=== PATIENT | female | born 1960 ===

== ENCOUNTER 2018-10-03 14:02 | Inpatient (IN) | payer MEDICAID ==
[2018-10-03 14:54] VITALS: BMI 28.6
--- NOTE | 2018-10-03 18:38 | CP.PCM.HP ---
History of Present Illness - History of Present Illness History of Present Illness: 57 yo female with history of DM2, HTN and HLD was diagnosed with meningioma presenting with persistent headache accompanied with nausea and vomiting at [facility] on 08/01/2018. She was referred to [facility] and had debulking craniotomy on 09/29/2018. Present on Admission - Present on Admission Any Indicators Present on Admission: No History of DVT/PE: No History of Uncontrolled Diabetes: No Urinary Catheter: No Decubitus Ulcer Present: No Review of Systems - Review of Systems All systems: reviewed and no additional remarkable complaints except (aside from those mentioned above, 12 point system review were negative by me) Past Patient History - Tetanus Immunizations Tetanus Immunization: Unknown - Past Social History Smoking Status: Never Smoked Chewing Tobacco Use: No Cigar Use: No Alcohol: None Drugs: Denies Home Situation {Lives}: With Family - CARDIAC Hx Hypercholesterolemia: Yes Hx Hypertension: Yes - ENDOCRINE/METABOLIC Hx Diabetes Mellitus Type 2: Yes - MUSCULOSKELETAL/RHEUMATOLOGICAL Hx Falls: No - GASTROINTESTINAL Hx Gastritis: Yes - PSYCHIATRIC Hx Substance Use: No Meds Allergies/Adverse Reactions: Allergies Allergy/AdvReac Type Severity Reaction Status Date / Time No Known Allergies Allergy Verified 10/03/18 14:54 Physical Exam - Constitutional Appears: No Acute Distress - Head Exam Head Exam: absent: NORMAL INSPECTION (large surgical incision on right side of s calp closed with sutures, no sign of inflammation) - Eye Exam Eye Exam: absent: Normal appearance (right eyelid closed shut) - ENT Exam ENT Exam: Mucous Membranes Moist - Neck Exam Neck exam: Negative for: Meningismus - Respiratory Exam Respiratory Exam: absent: Rales, Rhonchi, Wheezes, Respiratory Distress - Cardiovascular Exam Cardiovascular Exam: REGULAR RHYTHM, +S1, +S2 - GI/Abdominal Exam GI & Abdominal Exam: Soft. absent: Tenderness - Rectal Exam Rectal Exam: Deferred - Neurological Exam Neurological exam: Alert, Oriented x3 - Psychiatric Exam Psychiatric exam: Normal Affect - Skin Skin Exam: Dry, Intact Assessment & Plan - Assessment and Plan (Free Text) Assessment: 57 yo female with history of DM2, HTN and HLD was diagnosed with meningioma presenting with persistent headache accompanied with nausea and vomiting at [facility] on 08/01/2018. She was referred to [facility] and had debulking craniotomy on 09/29/2018. She was brought here and admitted to Acute Rehab for continuation of PT. 1. Meningioma post debulking craniotomy day # 4 refer for PT evaluation and management physiatry consult with Dr Luis Sidhu 500mg PO BID 2. DM2 accuchek ACHS with low Lispro coverage Metformin 1000mg PO q 12hrs HgA1C, BMP in am 3. HTN BP stable continue Lisinopril 2.5mg PO daily 4. DVT prophylaxis venodyne boots while in bed
[2018-10-03] MEDS ORDERED: Albuterol-Ipratrop 3 mg / 0.5 (3 ml) UD IH PRN (18:49)
[2018-10-03] MEDS ORDERED: Oxycodone/Acetaminophen 5/325 mg Tab PO PRN (18:49)
[2018-10-03] MEDS ORDERED: LEVETIRACETAM 500 MG IVPB SCH (21:00)
[2018-10-03] MEDS: Insulin Lispro (humaLOG) 100 Units/ml Inj SC SCH (21:09)
[2018-10-04] MEDS ORDERED: Oxycodone/Acetaminophen 5/325 mg Tab PO PRN (04:14)
[2018-10-04] MEDS: Pantoprazole 40 mg EC Tab PO SCH (06:24)
[2018-10-04] MEDS: Insulin Lispro (humaLOG) 100 Units/ml Inj SC SCH ×4 (06:33→21:31)
[2018-10-04] MEDS: Multivitamin With Minerals Tab PO SCH (09:34)
[2018-10-04] MEDS: Cholecalciferol 400 Intl Units Tab PO SCH (11:29)
--- NOTE | 2018-10-04 12:11 | CP.PCM.CON ---
History of Present Illness - History of Present Illness History of Present Illness: Dr Smith PMR consultation on Crystal Rivera, born 1960, who has been admitted to [facility] for acute inpatient rehabilitation following an admission at [facility]. She had persistent HAs and was diagnosed with a meningioma and had undergone a debulking procedure 09/29/18. Post op minimal weakness in the extremities but a decrease in balance and functional gait. Right eye swelling and ptosis. She is right hand dominant Review of Systems - Constitutional Constitutional: absent: Chills - EENT Eyes: Other (right eye ptosis) Ears: absent: Ear Discharge, Ear Pain Nose/Mouth/Throat: absent: Nasal Discharge - Cardiovascular Cardiovascular: absent: Chest Pain - Respiratory Respiratory: absent: Cough, Dyspnea, Hemoptysis - Gastrointestinal Gastrointestinal: absent: Belching, Constipation - Musculoskeletal Musculoskeletal: absent: Back Pain - Integumentary Integumentary: absent: Skin Ulcer (rasta right frontal and lateral scalp) - Neurological Neurological: Other Visual Disturbances. absent: Abnormal Movements - Psychiatric Psychiatric: absent: Anxiety Past Patient History - Tetanus Immunizations Tetanus Immunization: Unknown - Past Social History Smoking Status: Never Smoked Chewing Tobacco Use: No Cigar Use: No Alcohol: None Drugs: Denies Home Situation {Lives}: With Family (some steps. Independent [employer]) - CARDIAC Hx Hypercholesterolemia: Yes Hx Hypertension: Yes - ENDOCRINE/METABOLIC Hx Diabetes Mellitus Type 2: Yes - HEMATOLOGICAL/ONCOLOGICAL Hx AIDS: No Hx Human Immunodeficiency Virus (HIV): No - MUSCULOSKELETAL/RHEUMATOLOGICAL Hx Falls: No - GASTROINTESTINAL Hx Gastritis: Yes - PSYCHIATRIC Hx Substance Use: No Meds Allergies/Adverse Reactions: Allergies Allergy/AdvReac Type Severity Reaction Status Date / Time No Known Allergies Allergy Verified 10/03/18 14:54 - Medications Medications: Current Medications Acetaminophen (Tylenol 325mg Tab) 650 mg PO Q4 PRN PRN Reason: Headache Last Admin: 10/03/18 19:19 Dose: 650 mg Acetaminophen (Tylenol 325mg Tab) 650 mg PO Q4 PRN PRN Reason: Other Last Admin: 10/04/18 06:22 Dose: 650 mg Albuterol/Ipratropium (Duoneb 3 Mg/0.5 Mg (3 Ml) Ud) 3 ml IH RQ4 PRN PRN Reason: Shortness of Breath Atorvastatin Calcium (Lipitor) 10 mg PO HS [facility] Last Admin: 10/03/18 21:11 Dose: 10 mg Dexamethasone (Decadron) 1 mg PO Q12 [facility] Last Admin: 10/04/18 11:29 Dose: 1 mg Dexamethasone (Decadron) 1 mg PO ONCE ONE Stop: 10/05/18 09:01 Diphenhydramine HCl (Benadryl) 25 mg PO Q6 PRN PRN Reason: itchiness Docusate Sodium (Colace) 100 mg PO BID [facility] Last Admin: 10/04/18 09:34 Dose: 100 mg Insulin Human Lispro (Humalog) 0 units SC [facility]; Protocol Last Admin: 10/04/18 11:29 Dose: 3 unit Levetiracetam (Keppra) 500 mg PO BID [facility] Last Admin: 10/04/18 09:34 Dose: 500 mg Lisinopril (Zestril) 2.5 mg PO DAILY [facility] Last Admin: 10/04/18 09:33 Dose: 2.5 mg Metformin HCl (Glucophage) 1,000 mg PO 0900,1700 [facility] Last Admin: 10/04/18 09:34 Dose: 1,000 mg Multivitamins/Minerals (Therapeutic-M Tab) 1 tab PO DAILY [facility] Last Admin: 10/04/18 09:34 Dose: 1 tab Oxycodone/Acetaminophen (Percocet 5/325 Mg Tab) 1 tab PO Q6 PRN PRN Reason: Pain, severe (8-10) Stop: 10/06/18 18:50 Pantoprazole Sodium (Protonix Ec Tab) 40 mg PO 0630 [facility] Last Admin: 10/04/18 06:24 Dose: 40 mg Vitamin D (Vitamin D 400 Intl Units Tab) 400 intlu PO DAILY [facility] Last Admin: 10/04/18 11:29 Dose: 400 intlu Physical Exam - Head Exam Head Exam: absent: ATRAUMATIC, NORMAL INSPECTION (rasta right frontal and lateral scalp) - Eye Exam Eye Exam: Periorbital swelling (right eye ptosis) - Respiratory Exam Respiratory Exam: NORMAL BREATHING PATTERN - Cardiovascular Exam Cardiovascular Exam: REGULAR RHYTHM - Extremities Exam Extremities exam: Negative for: calf tenderness - Neurological Exam Neurological exam: Alert, Oriented x3 - Psychiatric Exam Psychiatric exam: Normal Affect, Normal Mood - Skin Skin Exam: Warm Results - Vital Signs Recent Vital Signs: Last Vital Signs Temp 99.9 F H 10/04/18 09:58 Pulse 75 10/04/18 09:58 Resp 20 10/04/18 09:58 BP 155/76 H 10/04/18 09:58 Pulse Ox 95 10/04/18 09:58 - Labs Labs: Laboratory Results - last 24 hr 10/03/18 10/04/18 21:07 06:16 POC Glucose (mg/dL) 137 H 136 H Assessment & Plan - Assessment and Plan (Free Text) Assessment: Ariela Rivera s/p debulking procedure. Post op with right eye ptosis and ataxia PT/OT to continue to help increase functional independence Team conference for d/c planning Pain: controlled Vascular: no evidence of DVT GI: No evidence of constipation or diarrhea Patient is an excellent acute rehabilitation candidate and will have focused pain management, wound care, PT, OT and recreational therapy to help facilitate a safe and appropriate d/c plan
--- NOTE | 2018-10-04 12:16 | PCM.OPOC ---
Physiatry Overall Plan of Care - Overall Plan of Care Estimated Length of Stay in Weeks: 2 Rehab Impairment: Mobility, Gait, Balance, Coordination, Other (vision) Etiologic Diagnosis: Other (brain surgery) - Anticipated Interventions Physical Therapy:: Yes Occupational Therapy:: Yes Speech Therapy:: No Recreational Therapy:: Yes - Therapy Goals Bed Mobility: Independent Ambulation: Supervision Functional Positional Changes:: Independent - Discharge Plan Discharge Destination: Home
[2018-10-05] MEDS: Insulin Lispro (humaLOG) 100 Units/ml Inj SC SCH ×4 (06:30→21:00)
[2018-10-05] MEDS: Pantoprazole 40 mg EC Tab PO SCH (06:44)
[2018-10-05] MEDS: Cholecalciferol 400 Intl Units Tab PO SCH (09:18)
[2018-10-05] MEDS: Multivitamin With Minerals Tab PO SCH (09:18)
[2018-10-06] MEDS: Pantoprazole 40 mg EC Tab PO SCH (06:31)
[2018-10-06] MEDS: Insulin Lispro (humaLOG) 100 Units/ml Inj SC SCH ×4 (06:32→21:03)
[2018-10-06] MEDS: Multivitamin With Minerals Tab PO SCH (09:02)
[2018-10-06] MEDS: Cholecalciferol 400 Intl Units Tab PO SCH (09:03)
[2018-10-06] MEDS ORDERED: Oxycodone/Acetaminophen 5/325 mg Tab PO PRN (14:25)
--- NOTE | 2018-10-06 15:51 | CP.PCM.PN ---
Subjective - Date & Time of Evaluation Date of Evaluation: 10/06/18 Time of Evaluation: 14:30 - Subjective Subjective: Patient seen and examined. Right eyelid still swollen and closed. Complained of tingling sensation on left arm. Objective - Vital Signs/Intake and Output Vital Signs (last 24 hours): Temp Pulse Resp BP Pulse Ox 97.8 F 81 19 128/74 99 10/06/18 09:37 10/06/18 09:37 10/06/18 09:37 10/06/18 09:37 10/06/18 09:37 - Medications Medications: Current Medications Acetaminophen (Tylenol 325mg Tab) 650 mg PO Q4 PRN PRN Reason: Headache Last Admin: 10/06/18 09:03 Dose: 650 mg Acetaminophen (Tylenol 325mg Tab) 650 mg PO Q4 PRN PRN Reason: Other Last Admin: 10/05/18 14:41 Dose: 650 mg Albuterol/Ipratropium (Duoneb 3 Mg/0.5 Mg (3 Ml) Ud) 3 ml IH RQ4 PRN PRN Reason: Shortness of Breath Atorvastatin Calcium (Lipitor) 10 mg PO HS [facility] Last Admin: 10/05/18 21:00 Dose: 10 mg Diphenhydramine HCl (Benadryl) 25 mg PO Q6 PRN PRN Reason: itchiness Docusate Sodium (Colace) 100 mg PO BID [facility] Last Admin: 10/06/18 09:01 Dose: 100 mg Insulin Human Lispro (Humalog) 0 units SC [facility]; Protocol Last Admin: 10/06/18 12:47 Dose: 2 unit Levetiracetam (Keppra) 500 mg PO BID [facility] Last Admin: 10/06/18 09:02 Dose: 500 mg Lisinopril (Zestril) 2.5 mg PO DAILY [facility] Last Admin: 10/06/18 09:03 Dose: 2.5 mg Metformin HCl (Glucophage) 1,000 mg PO 0900,1700 [facility] Last Admin: 10/06/18 09:02 Dose: 1,000 mg Multivitamins/Minerals (Therapeutic-M Tab) 1 tab PO DAILY [facility] Last Admin: 10/06/18 09:02 Dose: 1 tab Oxycodone/Acetaminophen (Percocet 5/325 Mg Tab) 1 tab PO Q6 PRN PRN Reason: Pain, severe (8-10) Stop: 10/09/18 04:15 Pantoprazole Sodium (Protonix Ec Tab) 40 mg PO 0630 [facility] Last Admin: 10/06/18 06:31 Dose: 40 mg Vitamin D (Vitamin D 400 Intl Units Tab) 400 intlu PO DAILY [facility] Last Admin: 10/06/18 09:03 Dose: 400 intlu - Constitutional Appears: No Acute Distress - Head Exam Head Exam: absent: NORMAL INSPECTION (surgical wound on right parietal region closed with sutures, no sign of infection ) - Eye Exam Eye Exam: absent: Normal appearance (right eyelid still swollen and unable to open), Scleral icterus - ENT Exam ENT Exam: Mucous Membranes Moist - Neck Exam Neck Exam: absent: Meningismus - Respiratory Exam Respiratory Exam: absent: Rales, Rhonchi, Wheezes, Respiratory Distress - Cardiovascular Exam Cardiovascular Exam: REGULAR RHYTHM, +S1, +S2 - GI/Abdominal Exam GI & Abdominal Exam: Soft. absent: Tenderness - Rectal Exam Rectal Exam: Deferred - Back Exam Back Exam: NORMAL INSPECTION - Neurological Exam Neurological Exam: Alert, Oriented x3 - Psychiatric Exam Psychiatric exam: Normal Affect - Skin Skin Exam: Dry, Intact Assessment and Plan - Assessment and Plan (Free Text) Assessment: 57 yo female with history of DM2, HTN and HLD was diagnosed with meningioma presenting with persistent headache accompanied with nausea and vomiting at [facility] on 08/01/2018. She was referred to [facility] and had debulking craniotomy on 09/29/2018. She was brought here and admitted to Acute Rehab for continuation of PT. 1. Meningioma post debulking craniotomy day # 7 continue PT/OT physiatry consult with Dr Luis Sidhu 500mg PO BID 2. DM2 accuchek ACHS with low Lispro coverage Metformin 1000mg PO q 12hrs HgA1C, BMP in am 3. HTN BP stable continue Lisinopril 2.5mg PO daily 4. DVT prophylaxis venodyne boots while in bed
--- NOTE | 2018-10-06 17:19 | CP.PCM.PN ---
Subjective - Date & Time of Evaluation Date of Evaluation: 10/06/18 Time of Evaluation: 17:18 - Subjective Subjective: patient seen in the room right eye ptosis continues good UE/LE strength very motivated for PT when I lift up the lid there is no blurrieness continue current care Objective - Vital Signs/Intake and Output Vital Signs (last 24 hours): Temp Pulse Resp BP Pulse Ox 97.8 F 81 19 128/74 99 10/06/18 09:37 10/06/18 09:37 10/06/18 09:37 10/06/18 09:37 10/06/18 09:37 - Medications Medications: Current Medications Acetaminophen (Tylenol 325mg Tab) 650 mg PO Q4 PRN PRN Reason: Headache Last Admin: 10/06/18 09:03 Dose: 650 mg Acetaminophen (Tylenol 325mg Tab) 650 mg PO Q4 PRN PRN Reason: Other Last Admin: 10/05/18 14:41 Dose: 650 mg Albuterol/Ipratropium (Duoneb 3 Mg/0.5 Mg (3 Ml) Ud) 3 ml IH RQ4 PRN PRN Reason: Shortness of Breath Atorvastatin Calcium (Lipitor) 10 mg PO HS [facility] Last Admin: 10/05/18 21:00 Dose: 10 mg Diphenhydramine HCl (Benadryl) 25 mg PO Q6 PRN PRN Reason: itchiness Docusate Sodium (Colace) 100 mg PO BID [facility] Last Admin: 10/06/18 16:12 Dose: Not Given Insulin Human Lispro (Humalog) 0 units SC [facility]; Protocol Last Admin: 10/06/18 16:12 Dose: Not Given Levetiracetam (Keppra) 500 mg PO BID [facility] Last Admin: 10/06/18 09:02 Dose: 500 mg Lisinopril (Zestril) 2.5 mg PO DAILY [facility] Last Admin: 10/06/18 09:03 Dose: 2.5 mg Metformin HCl (Glucophage) 1,000 mg PO 0900,1700 [facility] Last Admin: 10/06/18 09:02 Dose: 1,000 mg Multivitamins/Minerals (Therapeutic-M Tab) 1 tab PO DAILY [facility] Last Admin: 10/06/18 09:02 Dose: 1 tab Oxycodone/Acetaminophen (Percocet 5/325 Mg Tab) 1 tab PO Q6 PRN PRN Reason: Pain, severe (8-10) Stop: 10/09/18 04:15 Pantoprazole Sodium (Protonix Ec Tab) 40 mg PO 629 [facility] Last Admin: 10/06/18 06:31 Dose: 40 mg Vitamin D (Vitamin D 400 Intl Units Tab) 400 intlu PO DAILY [facility] Last Admin: 10/06/18 09:03 Dose: 400 intlu
[2018-10-07] MEDS: Pantoprazole 40 mg EC Tab PO SCH (05:43)
[2018-10-07 06:29] LABS: HEMOGLOBIN 10.1 g/dL (12.0-16.0); MEAN CELL VOLUME 80.6 fl (81.0-99.0); MEAN CORPUSCULAR HGB CONC 32.3 g/dL (33.0-37.0); RBC 3.88 Mil/uL (3.80-5.20); RED CELL DISTRIBUTION WIDTH 15.8 % (11.5-14.5); WHITE BLOOD COUNT 12.9 K/uL (4.8-10.8)
[2018-10-07] MEDS: Insulin Lispro (humaLOG) 100 Units/ml Inj SC SCH ×4 (06:46→21:04)
[2018-10-07 06:52] LABS: BLOOD UREA NITROGEN 12 mg/dl (7-17); CALCIUM 9.5 mg/dL (8.4-10.2); GFR NON-AFRICAN AMERICAN > 60
[2018-10-07] MEDS: Multivitamin With Minerals Tab PO SCH (08:26)
[2018-10-07] MEDS: Cholecalciferol 400 Intl Units Tab PO SCH (08:27)
--- NOTE | 2018-10-07 13:17 | PCM.PSYTMC ---
Acute Rehab Team Conference - - Vital Signs: Vital Signs (Last 8 Hours): Vital Signs 10/07/18 10/07/18 08:14 08:23 Temperature 97.5 F L Pulse Rate 75 75 Respiratory 19 Rate Blood Pressure 130/72 130/72 O2 Sat by Pulse 97 Oximetry Pain: 0 - Precautions: Precautions: Fall Prevention, Seizure - Medications/Other Issues: Comment: Alert/forgetful and impulsive at times - Skin: Incision Site: Rt Forehead I/L with rasta AYANNA Dressing Status: Clean, Dry, Intact Incision: Well Approximated, [place] Intact Incision Line Treatment: AYANNA - Toileting: Toileting: Contact Guard - Bladder Management: Bladder Pattern: Normal Voiding Method: Toilet Bladder Management: Contact Guard Other Intervention:: Continent of urine no accidents - Transfers: Transfers: Contact Guard - ADL's: ADL's: Minimal Assistance - Pain Management: Other Intervention:: Assess prn - Patient/Family Teaching: Other Intervention:: Medication Management,Safety,Wound Care - Goals/Time Frame: Comment: as per POC - Provider: Registered Nurse:: Ludy Aviles Physical Therapy - Bed Mobility Bed Mobility: Supervision, Verbal Cues, Contact Guard Comment: bed mob CG/CS - Transfers Wheelchair to Mat: Verbal Cues, Contact Guard, Minimal Assistance Sit to Stand: Verbal Cues, Contact Guard Comment: vc for sequencing and safety w/ t/f, darin hand placement. Pt w/ intermittent impulsive episodes during t/f. Ant instability noted at times during t/f - Ambulation Level of Assistance: Verbal Cues, Contact Guard, Minimal Assistance Distance (ft.): 75 Comment: x2, multiple short distance walks. wide LORENZO w/ BLE ER, incr'd lateral sway, initial contact B foot flat. Pt is unsteady w/ multiple episodes of LOB fwd/bkwd, L/R, primarily to the R w/ min A to recover. Greater instability noted when navigating turns and obstacles - Stair Negotiation Stairs: Level of Assistance: Verbal Cues, Contact Guard Stairs: Assistive Devices: Left Handrail, Right Handrail Comment: 4-6 in (CG/min A) step to pattern. or 8-4 in (CG) step through pattern. slightly incr'd lateral sway noted w/ task - Standing Balance Static Stand: Contact Guard Assist Comment: unsupported - Pain Pain (assessed during therapy session): 0 Comment: N/A - Insight/Carryover Insight/Carryover: Fair - Patient/Family Education Comment: crani recovery topics, posture, activity pacing, seatbelt alarm, fxnl mob, safety, PT goals, POC, falls risk - Assessment/Plan Assessment: 57 yo female admitted to [facility] actue rehab s/p R debulking craniotomy due to cerebral meningoma. Pt present w/ lethargy, impulsivity, and impaired coordination, short term memory, balance, kinesthesia, fxnl mob, activity tolerance and safety. Skilled acute rehab PT recommended. - Goals Timeframe: 3 weeks Goals: Raphael Balance Scale 56/56. 2 flights 8 in steps w/ 1 HR mod I, step through pattern. 500' w/o AD indep. sit to stand t/f indep. SPT indep. bed mob indep - Provider Physical Therapist:: Jennifer Gardner License Number:: [id number] Occupational Therapy - Arousal/Attention/Orientation Level of Consciousness: Awake, Alert Patient Orientation: Person, Place, Time Assessment Comment: +impulsive - ADL/IADL Self Feeding: Set-up Help Grooming: Set-up Help Bathing-Upper Ext: Supervision Bathing-Lower Ext: Contact Guard Dressing-Upper Ext: Supervision Dressing-Lower Ext: Contact Guard - Sitting Balance Static Sitting: Independent without upper extremity support Dynamic Sitting: Requires supervision - Transfers Wheelchair to Bed Transfers: Contact Guard Toilet Transfers: Contact Guard Comment: uses RW - Wheelchair Management Level of Assistance: Supervision Distance (ft.): 150 - Upper Extremity Status Right Upper Extremity Comment: WFLs Left Upper Extremity Comment: WFLs - Pain Pain (assessed during therapy session): 4 Alleviating Techniques: Medication Comment: +headache - Insight/Carryover Insight/Carryover: Fair - Patient/Family Education Comment: AE/DME education, energy conservation, fall prevention, role of OT, goals in therapy/therapy schedule - Assessment/Plan Assessment: PRECAUTIONS:FALLS/SAFETY, SEATBELT ALARM IN PLACE AT ALL TIMES, VISION DEFECITS/R EYE CLOSURE. Patient is a 57 yo female presenting to acute rehab s/p R pterional craniotomy. patient presents with pain in head, R eyE swelling/closure,impaired safely awareness/impulsivity, unsteadiness on feet/impaired dyanamic standing balance and impaired knowledge of adaptive/compensatory techniques impacting pt's ability to complete adls, iadls, transfers and mobility safely and effectively. patient currently is able to complete ub adls with s/u/supervision, lb adls with overall cga and transfers/mopbility with cga w/o an AD, patient noted to have losses of balance during pivots. Educated pt importance of head turning to increase visually scanning environmet. skilled IP OT services 5-6x/week are highly warranted to maximize pt's functional I with aforementioned defecits. GOAL:D/C HOME WITH ITERMITTENT SUPERVISION PRN - Goals Timeframe: 2 weeks - Provider Occupational Therapist:: Mariaa Bone License Number: [id number] Recreational Therapy - Participation Participation: Participates in Individual and/or Group Sessions - Attendance Attendance: 3-5 times per week - Activities Leisure Activities: Cards and Games - Socialization Level of Socialization: Initiates/interacts freely with care givers and peer - Assessment Assessment/Plan: Pt was oriented to the benefits of participating in recreation therapy sessions throughout stay on unit. Pt agreeable to participate in sessions. Barriers to participation include visual deficits and pain. Pt will benefit from participating in recreation therapy sessions to improve command following, direction following, and arousal level. Problems Currently Limiting Participation: headache pain, R eye swollen, decrease leisure awareness level, decrease safety insight Goals and Time Frame: Pt will be encouraged to participate in 1:1 and group recreation therapy sessions 3-5x week to improve leisure awareness level, arousal level, command following level, and overall mood state by date of discharge. - Provider Therapist: Celi Gonzalez Nutrition - Current Diet Current Diet/Supplement/Feedings: Current: Moderate Consistent CHO diet. Prior: Regular Diet. - Appetite Percent Meal Consumed: 75-100% - Comments Comments: Pt seen today, diet changed to Consistent CHO diet. - Assessment/Goals/Time Frame Assessments/Goals/Time Frame: 1: Consume >75% of meals. 2: Blood sugars constrolled 70-180mg/dL. For follow up 10/14/18 - Provider Provider: Jarod Handy Case Management - Psychosocial Assessment Support Systems: Asia Pitts ([facility]) - [phone] Psychological Interventions/Needs: Patient is AAOx3 and able to verbalize needs. Discharge Concerns: Patient has 14+ steps to navigate at home and takes care of her elderly mother. Patient/Family Meeting: CM met with patient and rehab team. Intervention/Goal/Outcome: 1. Goal: Intermittent supervision 2. Plan: home with VNS 3. DME needs 4. f/u appts - Discharge Plan Discharge Plan: Home with services Home Services: [facility] - Provider Provider: Colleen Nye License Number: [id number] Rehabilitation Plan - Treatment Plan Treatment Plan: Physical Therapy, Occupational Therapy, Dietary, Patient/Family Education - Discharge Plan Estimated Date of Discharge: 10/15/18 Discharge to: Home
--- NOTE | 2018-10-07 13:45 | CP.PCM.PN ---
Subjective - Date & Time of Evaluation Date of Evaluation: 10/07/18 Time of Evaluation: 13:44 - Subjective Subjective: Patient seen in the room some mild decrease in periorbital swelling on the right denies sob/cp now stable and motivated rasta cdi and have been cleared to remove 10/13/18 Objective - Vital Signs/Intake and Output Vital Signs (last 24 hours): Temp Pulse Resp BP Pulse Ox 97.5 F L 75 19 130/72 97 10/07/18 08:14 10/07/18 08:23 10/07/18 08:14 10/07/18 08:23 10/07/18 08:14 - Medications Medications: Current Medications Acetaminophen (Tylenol 325mg Tab) 650 mg PO Q4 PRN PRN Reason: Headache Last Admin: 10/07/18 08:28 Dose: 650 mg Acetaminophen (Tylenol 325mg Tab) 650 mg PO Q4 PRN PRN Reason: Other Last Admin: 10/05/18 14:41 Dose: 650 mg Albuterol/Ipratropium (Duoneb 3 Mg/0.5 Mg (3 Ml) Ud) 3 ml IH RQ4 PRN PRN Reason: Shortness of Breath Atorvastatin Calcium (Lipitor) 10 mg PO HS [facility] Last Admin: 10/06/18 21:04 Dose: 10 mg Diphenhydramine HCl (Benadryl) 25 mg PO Q6 PRN PRN Reason: itchiness Docusate Sodium (Colace) 100 mg PO BID [facility] Last Admin: 10/07/18 08:24 Dose: 100 mg Insulin Human Lispro (Humalog) 0 units SC [facility]; Protocol Last Admin: 10/07/18 12:20 Dose: Not Given Levetiracetam (Keppra) 500 mg PO BID [facility] Last Admin: 10/07/18 08:26 Dose: 500 mg Lisinopril (Zestril) 2.5 mg PO DAILY [facility] Last Admin: 10/07/18 08:23 Dose: 2.5 mg Metformin HCl (Glucophage) 1,000 mg PO 0900,1700 [facility] Last Admin: 10/07/18 08:23 Dose: 1,000 mg Multivitamins/Minerals (Therapeutic-M Tab) 1 tab PO DAILY [facility] Last Admin: 10/07/18 08:26 Dose: 1 tab Oxycodone/Acetaminophen (Percocet 5/325 Mg Tab) 1 tab PO Q6 PRN PRN Reason: Pain, severe (8-10) Stop: 10/09/18 04:15 Pantoprazole Sodium (Protonix Ec Tab) 40 mg PO 0630 [facility] Last Admin: 10/07/18 05:43 Dose: 40 mg Vitamin D (Vitamin D 400 Intl Units Tab) 400 intlu PO DAILY [facility] Last Admin: 10/07/18 08:27 Dose: 400 intlu - Labs Labs: 10/07/18 05:20 10/07/18 05:20
[2018-10-08] MEDS: Pantoprazole 40 mg EC Tab PO SCH (06:06)
[2018-10-08] MEDS: Insulin Lispro (humaLOG) 100 Units/ml Inj SC SCH ×4 (07:00→21:54)
[2018-10-08] MEDS: Cholecalciferol 400 Intl Units Tab PO SCH (08:44)
[2018-10-08] MEDS: Multivitamin With Minerals Tab PO SCH (08:45)
--- NOTE | 2018-10-08 11:26 | CP.PCM.PN ---
Subjective - Date & Time of Evaluation Date of Evaluation: 10/08/18 Time of Evaluation: 11:26 - Subjective Subjective: doing well no complaints hd stable nad Objective - Vital Signs/Intake and Output Vital Signs (last 24 hours): Temp Pulse Resp BP Pulse Ox 97.9 F 80 20 109/66 98 10/08/18 09:24 10/08/18 09:49 10/08/18 09:24 10/08/18 09:24 10/08/18 09:24 Vitals Reviewed GEN: WDWN, alert, cooperative HEENT: NCAT, PERRL, EOMI HEART: RRR, +S1S2, NO MRG LUNG: CTAB, NO WRR ABD: soft, NT, ND, No HSM, No masses EXT: normal pedal pulses NEURO: awake, alert SKIN: warm, dry PSYCH: normal mood, normal affect - Medications Medications: Current Medications Acetaminophen (Tylenol 325mg Tab) 650 mg PO Q4 PRN PRN Reason: Headache Last Admin: 10/07/18 08:28 Dose: 650 mg Acetaminophen (Tylenol 325mg Tab) 650 mg PO Q4 PRN PRN Reason: Other Last Admin: 10/08/18 08:49 Dose: 650 mg Albuterol/Ipratropium (Duoneb 3 Mg/0.5 Mg (3 Ml) Ud) 3 ml IH RQ4 PRN PRN Reason: Shortness of Breath Atorvastatin Calcium (Lipitor) 10 mg PO [facility] Last Admin: 10/07/18 21:05 Dose: 10 mg Diphenhydramine HCl (Benadryl) 25 mg PO Q6 PRN PRN Reason: itchiness Docusate Sodium (Colace) 100 mg PO BID [facility] Last Admin: 10/08/18 08:45 Dose: 100 mg Insulin Human Lispro (Humalog) 0 units SC [facility]; Protocol Last Admin: 10/08/18 07:00 Dose: Not Given Levetiracetam (Keppra) 500 mg PO BID [facility] Last Admin: 10/08/18 08:45 Dose: 500 mg Lisinopril (Zestril) 2.5 mg PO DAILY [facility] Last Admin: 10/08/18 08:45 Dose: 2.5 mg Metformin HCl (Glucophage) 1,000 mg PO 0900,1700 [facility] Last Admin: 10/08/18 08:45 Dose: 1,000 mg Multivitamins/Minerals (Therapeutic-M Tab) 1 tab PO DAILY [facility] Last Admin: 10/08/18 08:45 Dose: 1 tab Oxycodone/Acetaminophen (Percocet 5/325 Mg Tab) 1 tab PO Q6 PRN PRN Reason: Pain, severe (8-10) Stop: 10/09/18 04:15 Pantoprazole Sodium (Protonix Ec Tab) 40 mg PO 0630 [facility] Last Admin: 10/08/18 06:06 Dose: 40 mg Vitamin D (Vitamin D 400 Intl Units Tab) 400 intlu PO DAILY [facility] Last Admin: 10/08/18 08:44 Dose: 400 intlu - Labs Labs: 10/07/18 05:20 10/07/18 05:20 Assessment and Plan - Assessment and Plan (Free Text) Plan: 57 yo female with history of DM2, HTN and HLD was diagnosed with meningioma presenting with persistent headache accompanied with nausea and vomiting at [facility] on 08/01/2018. She was referred to [facility] and had debulking craniotomy on 09/29/2018. She was brought here and admitted to Acute Rehab for continuation of PT. 1. Meningioma post debulking craniotomy day # 7 continue PT/OT physiatry consult with Dr Luis Sidhu 500mg PO BID 2. DM2 accuchek ACHS with low Lispro coverage Metformin 1000mg PO q 12hrs HgA1C, BMP in am 3. HTN BP stable continue Lisinopril 2.5mg PO daily 4. DVT prophylaxis venodyne boots while in bed
--- NOTE | 2018-10-08 13:40 | CP.PCM.PN ---
Subjective - Date & Time of Evaluation Date of Evaluation: 10/08/18 Time of Evaluation: 13:38 - Subjective Subjective: Crystal Rivera, born 1960, who has been admitted to [facility] for acute inpatient rehabilitation following an admission at [facility]. She had persistent HAs and was diagnosed with a meningioma and had undergone a debulking procedure 09/29/18. Post op minimal weakness in the extremities but a decrease in balance and functional gait. Right eye swelling and ptosis. She is right hand dominant Objective - Vital Signs/Intake and Output Vital Signs (last 24 hours): Temp Pulse Resp BP Pulse Ox 97.9 F 80 20 109/66 98 10/08/18 09:24 10/08/18 09:49 10/08/18 09:24 10/08/18 09:24 10/08/18 09:24 - Medications Medications: Current Medications Acetaminophen (Tylenol 325mg Tab) 650 mg PO Q4 PRN PRN Reason: Headache Last Admin: 10/07/18 08:28 Dose: 650 mg Acetaminophen (Tylenol 325mg Tab) 650 mg PO Q4 PRN PRN Reason: Other Last Admin: 10/08/18 08:49 Dose: 650 mg Albuterol/Ipratropium (Duoneb 3 Mg/0.5 Mg (3 Ml) Ud) 3 ml IH RQ4 PRN PRN Reason: Shortness of Breath Atorvastatin Calcium (Lipitor) 10 mg PO HS [facility] Last Admin: 10/07/18 21:05 Dose: 10 mg Diphenhydramine HCl (Benadryl) 25 mg PO Q6 PRN PRN Reason: itchiness Docusate Sodium (Colace) 100 mg PO BID [facility] Last Admin: 10/08/18 08:45 Dose: 100 mg Insulin Human Lispro (Humalog) 0 units SC [facility]; Protocol Last Admin: 10/08/18 12:28 Dose: Not Given Levetiracetam (Keppra) 500 mg PO BID [facility] Last Admin: 10/08/18 08:45 Dose: 500 mg Lisinopril (Zestril) 2.5 mg PO DAILY [facility] Last Admin: 10/08/18 08:45 Dose: 2.5 mg Metformin HCl (Glucophage) 1,000 mg PO 0900,1700 [facility] Last Admin: 10/08/18 08:45 Dose: 1,000 mg Multivitamins/Minerals (Therapeutic-M Tab) 1 tab PO DAILY [facility] Last Admin: 10/08/18 08:45 Dose: 1 tab Oxycodone/Acetaminophen (Percocet 5/325 Mg Tab) 1 tab PO Q6 PRN PRN Reason: Pain, severe (8-10) Stop: 10/09/18 04:15 Pantoprazole Sodium (Protonix Ec Tab) 40 mg PO 0630 [facility] Last Admin: 10/08/18 06:06 Dose: 40 mg Vitamin D (Vitamin D 400 Intl Units Tab) 400 intlu PO DAILY [facility] Last Admin: 10/08/18 08:44 Dose: 400 intlu - Labs Labs: 10/07/18 05:20 10/07/18 05:20 - Constitutional Appears: Non-toxic, No Acute Distress - Head Exam Head Exam: absent: ATRAUMATIC (right sided rasta CDI) - Eye Exam Eye Exam: absent: EOMI (right eye lacking medial gaze. + Ptosis right) - Respiratory Exam Respiratory Exam: NORMAL BREATHING PATTERN - Cardiovascular Exam Cardiovascular Exam: REGULAR RHYTHM - GI/Abdominal Exam GI & Abdominal Exam: absent: Distended, Guarding - Extremities Exam Extremities Exam: Full ROM. absent: Calf Tenderness - Neurological Exam Neurological Exam: Alert. absent: CN II-XII Intact (right III and IV ) - Psychiatric Exam Psychiatric exam: Normal Affect, Normal Mood - Skin Skin Exam: Warm Assessment and Plan - Assessment and Plan (Free Text) Assessment: Crystal Rivera, born 1960, who has been admitted to [facility] for acute inpatient rehabilitation following an admission at [facility]. She had persistent HAs and was diagnosed with a meningioma and had undergone a debulking procedure 09/29/18. Post op minimal weakness in the extremities but a decrease in balance and functional gait. Right eye swelling and ptosis. She is right hand dominant stable with no improvement in right eye PT/OT to continue to help increase functional independence Team conference for d/c planning Pain: controlled Vascular: no evidence of DVT GI: No evidence of constipation or diarrhea Patient continues to be an excellent acute rehabilitation candidate and will have continued focused PT, OT and recreational therapy to help facilitate a safe and appropriate d/c plan
[2018-10-09] MEDS ORDERED: Hydrogen Peroxide 237 ML SOL TP SCH ×2 (06:30→07:00)
[2018-10-09] MEDS: Pantoprazole 40 mg EC Tab PO SCH (06:33)
[2018-10-09] MEDS: Insulin Lispro (humaLOG) 100 Units/ml Inj SC SCH ×4 (06:41→21:09)
[2018-10-09] MEDS: Hydrogen Peroxide 3% Soln (480ml) TP SCH (07:45)
[2018-10-09] MEDS: Multivitamin With Minerals Tab PO SCH (08:25)
[2018-10-09] MEDS: Cholecalciferol 400 Intl Units Tab PO SCH (08:25)
[2018-10-09] MEDS ORDERED: Oxycodone/Acetaminophen 5/325 mg Tab PO PRN (10:18)
[2018-10-10] MEDS: Pantoprazole 40 mg EC Tab PO SCH (05:54)
[2018-10-10] MEDS: Hydrogen Peroxide 3% Soln (480ml) TP SCH (05:59)
[2018-10-10] MEDS: Insulin Lispro (humaLOG) 100 Units/ml Inj SC SCH ×4 (07:36→21:23)
[2018-10-10] MEDS: Multivitamin With Minerals Tab PO SCH (09:02)
[2018-10-10] MEDS: Cholecalciferol 400 Intl Units Tab PO SCH (09:03)
--- NOTE | 2018-10-10 14:42 | CP.PCM.PN ---
Subjective - Date & Time of Evaluation Date of Evaluation: 10/10/18 Time of Evaluation: 10:30 - Subjective Subjective: Patient seen and examined. Complained of discomfort on right eye that is still closed in spite of reduced swelling on the eyelids. Objective - Vital Signs/Intake and Output Vital Signs (last 24 hours): Temp Pulse Resp BP Pulse Ox 98 F 77 18 111/80 99 10/10/18 10:38 10/10/18 09:24 10/10/18 07:30 10/10/18 09:02 10/10/18 07:30 - Medications Medications: Current Medications Acetaminophen (Tylenol 325mg Tab) 650 mg PO Q4 PRN PRN Reason: Headache Last Admin: 10/10/18 10:38 Dose: 650 mg Acetaminophen (Tylenol 325mg Tab) 650 mg PO Q4 PRN PRN Reason: Other Last Admin: 10/09/18 20:11 Dose: 650 mg Albuterol/Ipratropium (Duoneb 3 Mg/0.5 Mg (3 Ml) Ud) 3 ml IH RQ4 PRN PRN Reason: Shortness of Breath Atorvastatin Calcium (Lipitor) 10 mg PO HS [facility] Last Admin: 10/09/18 21:06 Dose: 10 mg Diphenhydramine HCl (Benadryl) 25 mg PO Q6 PRN PRN Reason: itchiness Docusate Sodium (Colace) 100 mg PO BID [facility] Last Admin: 10/10/18 09:01 Dose: 100 mg Hydrogen Peroxide (Hydrogen Peroxide 3%) 10 ml TP DAILY@0700 [facility] Last Admin: 10/10/18 05:59 Dose: 10 ml Insulin Human Lispro (Humalog) 0 units SC [facility]; Protocol Last Admin: 10/10/18 07:36 Dose: 1 unit Levetiracetam (Keppra) 500 mg PO BID [facility] Last Admin: 10/10/18 09:01 Dose: 500 mg Lisinopril (Zestril) 2.5 mg PO DAILY [facility] Last Admin: 10/10/18 09:02 Dose: 2.5 mg Metformin HCl (Glucophage) 1,000 mg PO 0900,1700 [facility] Last Admin: 10/10/18 09:03 Dose: 1,000 mg Multivitamins/Minerals (Therapeutic-M Tab) 1 tab PO DAILY [facility] Last Admin: 10/10/18 09:02 Dose: 1 tab Oxycodone/Acetaminophen (Percocet 5/325 Mg Tab) 1 tab PO Q6 PRN PRN Reason: Pain, severe (8-10) Stop: 10/12/18 10:19 Pantoprazole Sodium (Protonix Ec Tab) 40 mg PO 0630 [facility] Last Admin: 10/10/18 05:54 Dose: 40 mg Vitamin D (Vitamin D 400 Intl Units Tab) 400 intlu PO DAILY [facility] Last Admin: 10/10/18 09:03 Dose: 400 intlu - Labs Labs: 10/07/18 05:20 10/07/18 05:20 - Constitutional Appears: No Acute Distress - Head Exam Head Exam: absent: NORMAL INSPECTION (suture intact on surgical wound on right side of head, no sign of infection) - Eye Exam Eye Exam: absent: Scleral icterus - ENT Exam ENT Exam: Mucous Membranes Moist - Neck Exam Neck Exam: absent: Meningismus - Respiratory Exam Respiratory Exam: absent: Rales, Rhonchi, Wheezes, Respiratory Distress - Cardiovascular Exam Cardiovascular Exam: REGULAR RHYTHM, +S1, +S2 - GI/Abdominal Exam GI & Abdominal Exam: Soft. absent: Tenderness - Rectal Exam Rectal Exam: Deferred - Neurological Exam Neurological Exam: Alert, Oriented x3 - Psychiatric Exam Psychiatric exam: Normal Affect - Skin Skin Exam: Dry, Intact Assessment and Plan - Assessment and Plan (Free Text) Assessment: [facility] on 08/01/2018. She was referred to [facility] and had debulking craniotomy on 09/29/2018. She was brought here and admitted to Acute Rehab for continuation of PT. 1. Meningioma post debulking craniotomy continue PT/OT physiatry consult with Dr Luis Sidhu 500mg PO BID neuro consult with Dr Jimenez 2. DM2 accuchek ACHS with low Lispro coverage Metformin 1000mg PO q 12hrs HgA1C, BMP in am 3. HTN BP stable continue Lisinopril 2.5mg PO daily 4. DVT prophylaxis venodyne boots while in bed
--- NOTE | 2018-10-10 16:30 | CP.PCM.PN ---
Subjective - Date & Time of Evaluation Date of Evaluation: 10/10/18 Time of Evaluation: 16:29 - Subjective Subjective: Patient seen in the PT gym doing BINGO she still has severe ptosis of the right eye very energetic though today and denies any pain or sob continue current care I will d/c rasta next week. Objective - Vital Signs/Intake and Output Vital Signs (last 24 hours): Temp Pulse Resp BP Pulse Ox 98 F 77 18 111/80 99 10/10/18 10:38 10/10/18 09:24 10/10/18 07:30 10/10/18 09:02 10/10/18 07:30 - Medications Medications: Current Medications Acetaminophen (Tylenol 325mg Tab) 650 mg PO Q4 PRN PRN Reason: Headache Last Admin: 10/10/18 10:38 Dose: 650 mg Acetaminophen (Tylenol 325mg Tab) 650 mg PO Q4 PRN PRN Reason: Other Last Admin: 10/09/18 20:11 Dose: 650 mg Albuterol/Ipratropium (Duoneb 3 Mg/0.5 Mg (3 Ml) Ud) 3 ml IH RQ4 PRN PRN Reason: Shortness of Breath Artificial Tears (Artificial Tears) 2 drop OD Q6 [facility] Atorvastatin Calcium (Lipitor) 10 mg PO HS [facility] Last Admin: 10/09/18 21:06 Dose: 10 mg Diphenhydramine HCl (Benadryl) 25 mg PO Q6 PRN PRN Reason: itchiness Docusate Sodium (Colace) 100 mg PO BID [facility] Last Admin: 10/10/18 09:01 Dose: 100 mg Hydrogen Peroxide (Hydrogen Peroxide 3%) 10 ml TP DAILY@0700 [facility] Last Admin: 10/10/18 05:59 Dose: 10 ml Insulin Human Lispro (Humalog) 0 units SC [facility]; Protocol Last Admin: 10/10/18 07:36 Dose: 1 unit Levetiracetam (Keppra) 500 mg PO BID [facility] Last Admin: 10/10/18 09:01 Dose: 500 mg Lisinopril (Zestril) 2.5 mg PO DAILY [facility] Last Admin: 10/10/18 09:02 Dose: 2.5 mg Metformin HCl (Glucophage) 1,000 mg PO 0900,1700 [facility] Last Admin: 10/10/18 09:03 Dose: 1,000 mg Multivitamins/Minerals (Therapeutic-M Tab) 1 tab PO DAILY [facility] Last Admin: 10/10/18 09:02 Dose: 1 tab Oxycodone/Acetaminophen (Percocet 5/325 Mg Tab) 1 tab PO Q6 PRN PRN Reason: Pain, severe (8-10) Stop: 10/12/18 10:19 Pantoprazole Sodium (Protonix Ec Tab) 40 mg PO 0630 [facility] Last Admin: 10/10/18 05:54 Dose: 40 mg Vitamin D (Vitamin D 400 Intl Units Tab) 400 intlu PO DAILY [facility] Last Admin: 10/10/18 09:03 Dose: 400 intlu - Labs Labs: 10/07/18 05:20 10/07/18 05:20
[2018-10-10] MEDS: Artificial Tears Opht Soln OD SCH ×2 (18:04→23:47)
[2018-10-11] MEDS: Artificial Tears Opht Soln OD SCH ×3 (05:53→17:38)
[2018-10-11] MEDS: Pantoprazole 40 mg EC Tab PO SCH (05:53)
[2018-10-11] MEDS: Hydrogen Peroxide 3% Soln (480ml) TP SCH (06:12)
[2018-10-11] MEDS: Insulin Lispro (humaLOG) 100 Units/ml Inj SC SCH ×4 (07:23→21:17)
[2018-10-11 07:28] LABS: HEMOGLOBIN 10.8 g/dL (12.0-16.0); MEAN CELL VOLUME 80.7 fl (81.0-99.0); MEAN CORPUSCULAR HGB CONC 32.2 g/dL (33.0-37.0); RBC 4.15 Mil/uL (3.80-5.20); RED CELL DISTRIBUTION WIDTH 16.2 % (11.5-14.5)
[2018-10-11 07:49] LABS: BLOOD UREA NITROGEN 14 mg/dl (7-17); CALCIUM 9.4 mg/dL (8.4-10.2); GFR NON-AFRICAN AMERICAN > 60
[2018-10-11] MEDS: Multivitamin With Minerals Tab PO SCH (08:58)
[2018-10-11] MEDS: Cholecalciferol 400 Intl Units Tab PO SCH (08:59)
--- NOTE | 2018-10-11 23:57 | CP.PCM.CON ---
History of Present Illness - History of Present Illness History of Present Illness: Neurology consult dictated. Patient with meningioma resected at [facility]. now has C3, 6, and 4 palsy on right side that may be secondary to edema, but we will need MRI Brain to confirm. For now we will repeat CT head. DR baidr Past Patient History - Tetanus Immunizations Tetanus Immunization: Unknown - Past Social History Smoking Status: Never Smoked Chewing Tobacco Use: No Cigar Use: No Alcohol: None Drugs: Denies Home Situation {Lives}: With Family (some steps. Independent [employer]) - CARDIAC Hx Hypertension: Yes - ENDOCRINE/METABOLIC Hx Diabetes Mellitus Type 2: Yes - HEMATOLOGICAL/ONCOLOGICAL Hx AIDS: No Hx Human Immunodeficiency Virus (HIV): No - MUSCULOSKELETAL/RHEUMATOLOGICAL Hx Falls: No - GASTROINTESTINAL Hx Gastritis: Yes - PSYCHIATRIC Hx Substance Use: No Meds Allergies/Adverse Reactions: Allergies Allergy/AdvReac Type Severity Reaction Status Date / Time No Known Allergies Allergy Verified 10/03/18 14:54 - Medications Medications: Current Medications Acetaminophen (Tylenol 325mg Tab) 650 mg PO Q4 PRN PRN Reason: Headache Last Admin: 10/11/18 22:56 Dose: 650 mg Acetaminophen (Tylenol 325mg Tab) 650 mg PO Q4 PRN PRN Reason: Other Last Admin: 10/10/18 23:51 Dose: 650 mg Albuterol/Ipratropium (Duoneb 3 Mg/0.5 Mg (3 Ml) Ud) 3 ml IH RQ4 PRN PRN Reason: Shortness of Breath Artificial Tears (Artificial Tears) 2 drop OD Q6 [facility] Last Admin: 10/11/18 17:38 Dose: 2 applic Atorvastatin Calcium (Lipitor) 10 mg PO HS [facility] Last Admin: 10/11/18 21:18 Dose: 10 mg Diphenhydramine HCl (Benadryl) 25 mg PO Q6 PRN PRN Reason: itchiness Docusate Sodium (Colace) 100 mg PO BID [facility] Last Admin: 10/11/18 17:38 Dose: 100 mg Hydrogen Peroxide (Hydrogen Peroxide 3%) 10 ml TP DAILY@0700 [facility] Last Admin: 10/11/18 06:12 Dose: 10 ml Insulin Human Lispro (Humalog) 0 units SC [facility]; Protocol Last Admin: 10/11/18 21:17 Dose: Not Given Levetiracetam (Keppra) 500 mg PO BID [facility] Last Admin: 10/11/18 17:39 Dose: 500 mg Lisinopril (Zestril) 2.5 mg PO DAILY [facility] Last Admin: 10/11/18 08:58 Dose: 2.5 mg Metformin HCl (Glucophage) 1,000 mg PO 0900,1700 [facility] Last Admin: 10/11/18 17:39 Dose: 1,000 mg Multivitamins/Minerals (Therapeutic-M Tab) 1 tab PO DAILY [facility] Last Admin: 10/11/18 08:58 Dose: 1 tab Oxycodone/Acetaminophen (Percocet 5/325 Mg Tab) 1 tab PO Q6 PRN PRN Reason: Pain, severe (8-10) Stop: 10/12/18 10:19 Pantoprazole Sodium (Protonix Ec Tab) 40 mg PO 0630 [facility] Last Admin: 10/11/18 05:53 Dose: 40 mg Vitamin D (Vitamin D 400 Intl Units Tab) 400 intlu PO DAILY [facility] Last Admin: 10/11/18 08:59 Dose: 400 intlu Results - Vital Signs Recent Vital Signs: Last Vital Signs Temp 97.7 F 10/11/18 20:00 Pulse 83 10/11/18 20:00 Resp 20 10/11/18 20:00 BP 121/62 10/11/18 20:00 Pulse Ox 100 10/11/18 20:00 - Labs Result Diagrams: 10/11/18 05:30 10/11/18 05:30 Labs: Laboratory Results - last 24 hr 10/11/18 10/11/18 10/11/18 05:30 05:30 05:53 WBC 11.0 H RBC 4.15 Hgb 10.8 L Hct 33.5 L MCV 80.7 L MCH 26.0 L MCHC 32.2 L RDW 16.2 H Plt Count 494 H Sodium 136 Potassium 4.0 Chloride 94 L Carbon Dioxide 29 Anion Gap 17 BUN 14 Creatinine 0.5 L Est GFR ( Amer) > 60 Est GFR (Non-Af Amer) > 60 POC Glucose (mg/dL) 178 H Random Glucose 179 H Calcium 9.4 10/11/18 10/11/18 11:29 15:56 WBC RBC Hgb Hct MCV MCH MCHC RDW Plt Count Sodium Potassium Chloride Carbon Dioxide Anion Gap BUN Creatinine Est GFR ( Amer) Est GFR (Non-Af Amer) POC Glucose (mg/dL) 171 H 139 H Random Glucose Calcium
--- NOTE | 2018-10-12 | CON ---
DATE: 10/11/2018 NEUROLOGY CONSULTATION Neurology consult Called by Dr. Hossein Jamison. HISTORY OF PRESENT ILLNESS: Ms. Crystal Rivera is a 57-year-old woman, who presented initially to [facility] on 08/04/2018. She presented with severe headache, 9/10, persistent for several days with nausea and vomiting and photophobia. She also stated that she had numbness of her right side of her tongue for one day. Upon imaging, the patient was found to have a large skull base tumor, thought to be meningioma and was referred for neurosurgical evaluation. Subsequently, while in [facility], the patient had said tumor resected, did well in the postop period, was started on Keppra. Pathology showed that the right-sided skull base tumor was indeed a meningioma. Cristian were placed in the right frontoparietal region and the patient was transferred last week to [facility]. Upon admission to the hospital, it was noted that the patient had right eye complete ptosis and right cranial nerve third and sixth paralysis. The patient states that these extraocular movement abnormalities were present immediately after the meningioma resection; however, we do not have notes to corroborate this claim. REVIEW OF SYSTEMS: Headache, malaise, ocular pain. A 12-point review of systems were found to positive only for the aforementioned. PAST MEDICAL HISTORY: As follows: Diabetes type 2, hypertension, hyperlipidemia. PAST SURGICAL HISTORY: As above. FAMILY HISTORY: Noncontributory. SOCIAL HISTORY: Noncontributory. ALLERGIES: NO KNOWN DRUG ALLERGIES. PHYSICAL EXAMINATION: GENERAL: The patient is alert and oriented x3. NEUROLOGIC: Pupils are equal, round, and reactive to light. Extraocular movements; left side extraocular movements are normal and right side, there is paralysis of cranial nerves IV, III, and . There is also right-sided ptosis, that is cranial nerve III involvement. Visual marrero are compromised on the right side. Visual marrero are full on the left side. The patient has complete anopsia on the right side. Mini-mental status is 30/30. Speech is fluent. She can name and repeat. Motor is 5/5 upper and lower bilaterally. Sensory in intact to fine touch, pin, position and vibration sense. Gait is not tested. Reflexes are +2 to upper and lower bilaterally. There is no facial weakness; however, there is swelling on the right side of the face. Cristian were examined and look clear and clean of infection and properly placed. LABORATORY DATA: As follows: White count 11, hemoglobin 10, hematocrit 32.5, platelets 494. Chemistry: Sodium 136, potassium 4, chloride 94, carbon dioxide 29. GFR is over 60. Glucose is 171. CAT scan of the head was done on 08/01/2018. This is preop. We do not have a postop film available at this point. IMPRESSION: This is a 57-year-old woman status post resection of skull base right-sided meningioma involving the frontal restorationism region. I am quite concerned about cranial nerves III, IV, and and paralysis of eye movements on her right side. I will further investigate to see if these are chronic changes; however, in the meantime, we will need to get a repeat CT head immediately. She will also need MRI of the brain. At this point, it does not appear that the eye is infected and it does not appear if there is an aneurysmal process; however, we will consider getting CT of the head and neck as well. Thank you for this interesting consult. Our team will follow. Tia Jimenez MD JERRICA
[2018-10-12] MEDS: Artificial Tears Opht Soln OD SCH ×4 (05:39→17:13)
[2018-10-12] MEDS: Pantoprazole 40 mg EC Tab PO SCH (05:39)
[2018-10-12] MEDS: Hydrogen Peroxide 3% Soln (480ml) TP SCH (07:37)
[2018-10-12] MEDS: Insulin Lispro (humaLOG) 100 Units/ml Inj SC SCH ×4 (07:37→21:07)
[2018-10-12] MEDS: Multivitamin With Minerals Tab PO SCH (08:34)
[2018-10-12] MEDS: Cholecalciferol 400 Intl Units Tab PO SCH (08:35)
--- NOTE | 2018-10-12 15:54 | CT ---
Date of service: 10/12/2018 PROCEDURE: CT HEAD WITHOUT CONTRAST. HISTORY: persistent ptosis of right eye post craniotomy COMPARISON: CT head dated 08/01/2018 performed at [facility]. TECHNIQUE: Axial computed tomography images were obtained through the head/brain without intravenous contrast. Radiation dose: Total exam DLP = 838.98 mGy-cm. This CT exam was performed using one or more of the following dose reduction techniques: Automated exposure control, adjustment of the mA and/or kV according to patient size, and/or use of iterative reconstruction technique. FINDINGS: HEMORRHAGE: No intracranial hemorrhage. BRAIN: Postsurgical changes in the right frontotemporal region with a small amount of supple malacia is seen in the inferior right temporal lobe. Stable appearance of large soft tissue mass which involves the inferomedial temporal lobe, clivus, right sphenoid wing, right petrous apex, probably extends into the sphenoid sinus and cavernous sinus and exerts mass effect on the midbrain/ramin displacing it to the left. VENTRICLES: Effacement of the right suprasellar cistern. Mass effect on the right portion of the 4th ventricle. No hydrocephalus. CALVARIUM: Right frontotemporal craniotomy. Postsurgical changes in the scalp with air and fluid. PARANASAL SINUSES: Subtotal opacification of the sphenoid sinuses, possibly from tumoral extension. MASTOID AIR CELLS: Unremarkable as visualized. No inflammatory changes. OTHER FINDINGS: Dysconjugate gaze. IMPRESSION: Interval right frontotemporal craniotomy with associated postsurgical changes. No significant change in appearance comment distribution for extent of above described mass with persistent mass effect upon with displacement of the midbrain/ramin to the left.
[2018-10-13] MEDS: Artificial Tears Opht Soln OD SCH ×5 (00:37→23:46)
[2018-10-13] MEDS: Pantoprazole 40 mg EC Tab PO SCH (05:55)
[2018-10-13] MEDS: Hydrogen Peroxide 3% Soln (480ml) TP SCH (06:19)
[2018-10-13] MEDS: Insulin Lispro (humaLOG) 100 Units/ml Inj SC SCH ×4 (08:00→21:55)
[2018-10-13] MEDS: Cholecalciferol 400 Intl Units Tab PO SCH (08:12)
[2018-10-13] MEDS: Multivitamin With Minerals Tab PO SCH (08:13)
--- NOTE | 2018-10-13 11:29 | CP.PCM.PN ---
Subjective - Date & Time of Evaluation Date of Evaluation: 10/13/18 Time of Evaluation: 11:00 - Subjective Subjective: Pt doing well with PT plan for removal of Craniotomy rasta today feels strong accdg to PT sl balance problems but otherwise ambulates on her own without the aide of any assistive device she is lookimg forward to going home and be with family denies any pain no CP, no SOB, no abd pain Objective - Vital Signs/Intake and Output Vital Signs (last 24 hours): Temp Pulse Resp BP Pulse Ox 97.9 F 85 18 108/60 98 10/13/18 07:43 10/13/18 08:12 10/13/18 07:43 10/13/18 08:12 10/13/18 07:43 - Medications Medications: Current Medications Acetaminophen (Tylenol 325mg Tab) 650 mg PO Q4 PRN PRN Reason: Headache Last Admin: 10/12/18 13:50 Dose: 650 mg Acetaminophen (Tylenol 325mg Tab) 650 mg PO Q4 PRN PRN Reason: Other Last Admin: 10/10/18 23:51 Dose: 650 mg Albuterol/Ipratropium (Duoneb 3 Mg/0.5 Mg (3 Ml) Ud) 3 ml IH RQ4 PRN PRN Reason: Shortness of Breath Artificial Tears (Artificial Tears) 2 drop OD Q6 [facility] Last Admin: 10/13/18 05:55 Dose: 1 applic Atorvastatin Calcium (Lipitor) 10 mg PO HS [facility] Last Admin: 10/12/18 21:13 Dose: 10 mg Diphenhydramine HCl (Benadryl) 25 mg PO Q6 PRN PRN Reason: itchiness Docusate Sodium (Colace) 100 mg PO BID [facility] Last Admin: 10/13/18 08:13 Dose: 100 mg Hydrogen Peroxide (Hydrogen Peroxide 3%) 10 ml TP DAILY@0700 [facility] Last Admin: 10/13/18 06:19 Dose: 10 ml Insulin Human Lispro (Humalog) 0 units SC [facility]; Protocol Last Admin: 10/13/18 08:00 Dose: 1 unit Levetiracetam (Keppra) 500 mg PO BID [facility] Last Admin: 10/13/18 08:12 Dose: 500 mg Lisinopril (Zestril) 2.5 mg PO DAILY [facility] Last Admin: 10/13/18 08:12 Dose: 2.5 mg Metformin HCl (Glucophage) 1,000 mg PO 0900,1700 [facility] Last Admin: 10/13/18 08:13 Dose: 1,000 mg Multivitamins/Minerals (Therapeutic-M Tab) 1 tab PO DAILY [facility] Last Admin: 10/13/18 08:13 Dose: 1 tab Pantoprazole Sodium (Protonix Ec Tab) 40 mg PO 0630 [facility] Last Admin: 10/13/18 05:55 Dose: 40 mg Vitamin D (Vitamin D 400 Intl Units Tab) 400 intlu PO DAILY [facility] Last Admin: 10/13/18 08:12 Dose: 400 intlu - Labs Labs: 10/11/18 05:30 10/11/18 05:30 - Constitutional Appears: No Acute Distress - Head Exam Additional comments: right craniotomy with rasta - Eye Exam Additional comments: right lid paralysis right pupils nonreactive and dilated - ENT Exam ENT Exam: Mucous Membranes Moist, Normal External Ear Exam - Neck Exam Neck Exam: Full ROM. absent: Meningismus - Respiratory Exam Respiratory Exam: NORMAL BREATHING PATTERN. absent: Respiratory Distress - Cardiovascular Exam Cardiovascular Exam: REGULAR RHYTHM, +S1, +S2 - GI/Abdominal Exam GI & Abdominal Exam: Soft, Normal Bowel Sounds. absent: Tenderness - Extremities Exam Extremities Exam: Full ROM, Normal Capillary Refill. absent: Calf Tenderness - Back Exam Back Exam: Full ROM. absent: CVA tenderness (L), CVA tenderness (R) - Neurological Exam Neurological Exam: Alert, Awake, Oriented x3 Neuro motor strength exam: Left Upper Extremity: 5, Right Upper Extremity: 5, Left Lower Extremity: 5, Right Lower Extremity: 5 - Psychiatric Exam Psychiatric exam: Normal Affect, Normal Mood - Skin Skin Exam: Dry, Normal Color, Warm Assessment and Plan - Assessment and Plan (Free Text) Plan: 57 y/o lady with Meniningioma dx in [facility] on 08/01/2018. She was referred to [facility] and had debulking craniotomy on 09/29/2018. She was brought here and admitted to Acute Rehab for continuation of PT. 1. Meningioma s/p Craniotomy with debulking continue PT/OT physiatry consult with Dr Luis Sidhu 500mg PO BID neuro consult with Dr Jimenez rpt Ct opf head done 10/12:Interval right frontotemporal craniotomy with associated postsurgical changes. No significant change in appearance comment distribution for extent of above described mass with persistent mass effect upon with displacement of the midbrain/ramin to the left. 2. DM2 accuchek ACHS with low Lispro coverage Metformin 1000mg PO q 12hrs 3. HTN BP stable continue Lisinopril 2.5mg PO daily 4. DVT prophylaxis venodyne boots while in bed
--- NOTE | 2018-10-13 11:52 | CP.PCM.PN ---
Subjective - Date & Time of Evaluation Date of Evaluation: 10/13/18 Time of Evaluation: 11:52 - Subjective Subjective: Neuro Follow-Up Note: Mrs. Rivera was evaluated this afternoon in the acute rehab. Pt admits to feeling frustrated with not being able to open her eye. She states that this started right after her craniotomy on 09/29/18. She is also worried because she has follow up appts with her neurosurgeon and is not sure if she can be transported from rehab to the office; she states that she has spoken to social insurance administrator about this concern. Otherwise, she is going well and denies h/a, dizziness, visual changes to the left eye, chest pain, palpitations, sob, cough, abd pain, n/v/d, paresthesias. Objective - Vital Signs/Intake and Output Vital Signs (last 24 hours): Temp Pulse Resp BP Pulse Ox 97.9 F 85 18 108/60 98 10/13/18 07:43 10/13/18 08:12 10/13/18 07:43 10/13/18 08:12 10/13/18 07:43 - Medications Medications: Current Medications Acetaminophen (Tylenol 325mg Tab) 650 mg PO Q4 PRN PRN Reason: Headache Last Admin: 10/12/18 13:50 Dose: 650 mg Acetaminophen (Tylenol 325mg Tab) 650 mg PO Q4 PRN PRN Reason: Other Last Admin: 10/10/18 23:51 Dose: 650 mg Albuterol/Ipratropium (Duoneb 3 Mg/0.5 Mg (3 Ml) Ud) 3 ml IH RQ4 PRN PRN Reason: Shortness of Breath Artificial Tears (Artificial Tears) 2 drop OD Q6 [facility] Last Admin: 10/13/18 05:55 Dose: 1 applic Atorvastatin Calcium (Lipitor) 10 mg PO HS [facility] Last Admin: 10/12/18 21:13 Dose: 10 mg Diphenhydramine HCl (Benadryl) 25 mg PO Q6 PRN PRN Reason: itchiness Docusate Sodium (Colace) 100 mg PO BID [facility] Last Admin: 10/13/18 08:13 Dose: 100 mg Hydrogen Peroxide (Hydrogen Peroxide 3%) 10 ml TP DAILY@0700 [facility] Last Admin: 10/13/18 06:19 Dose: 10 ml Insulin Human Lispro (Humalog) 0 units SC ACHS [facility]; Protocol Last Admin: 10/13/18 08:00 Dose: 1 unit Levetiracetam (Keppra) 500 mg PO BID [facility] Last Admin: 10/13/18 08:12 Dose: 500 mg Lisinopril (Zestril) 2.5 mg PO DAILY [facility] Last Admin: 10/13/18 08:12 Dose: 2.5 mg Metformin HCl (Glucophage) 1,000 mg PO 0900,1700 [facility] Last Admin: 10/13/18 08:13 Dose: 1,000 mg Multivitamins/Minerals (Therapeutic-M Tab) 1 tab PO DAILY [facility] Last Admin: 10/13/18 08:13 Dose: 1 tab Pantoprazole Sodium (Protonix Ec Tab) 40 mg PO 0630 [facility] Last Admin: 10/13/18 05:55 Dose: 40 mg Vitamin D (Vitamin D 400 Intl Units Tab) 400 intlu PO DAILY [facility] Last Admin: 10/13/18 08:12 Dose: 400 intlu - Labs Labs: 10/11/18 05:30 10/11/18 05:30 - Constitutional Appears: Well, Non-toxic, No Acute Distress - Head Exam Head Exam: NORMOCEPHALIC Additional comments: Post-craniotomy surgical site with rasta noted to right frontal area - Eye Exam Eye Exam: absent: Normal appearance, PERRL Pupil Exam: absent: NORMAL ACCOMODATION Additional comments: + right side ptosis noted + slight swelling noted to right periorbital area With examiner holding the right eye open: + EMOI intact, visual marrero intact, no nystagmus, pupil size 5mm and is reactive but slightly sluggish. No deficits to left eye movements or visual marrero. - ENT Exam ENT Exam: Mucous Membranes Moist - Neck Exam Neck Exam: Full ROM, Normal Inspection - Respiratory Exam Respiratory Exam: NORMAL BREATHING PATTERN - Extremities Exam Extremities Exam: Full ROM. absent: Calf Tenderness, Pedal Edema - Back Exam Back Exam: Full ROM - Neurological Exam Neurological Exam: Alert, Awake, Oriented x3, Reflexes Normal. absent: CN II- XII Intact Neuro motor strength exam: Left Upper Extremity: 5, Right Upper Extremity: 5, Left Lower Extremity: 5, Right Lower Extremity: 5 Additional comments: AAOx3 Follows commands Speech clear, fluid No motor and sensory deficits. + right sided ptosis---see eyes exam section for more details. Sensation intact - Psychiatric Exam Psychiatric exam: Normal Affect, Normal Mood - Skin Skin Exam: Normal Color Additional comments: Post-craniotomy surgical site with rasta noted to right frontal area Assessment and Plan (1) Ptosis of right eyelid Assessment & Plan: Imaging reviewed: -CT Head (10/12/18): Interval right frontotemporal craniotomy with associated postsurgical changes. No significant change in appearance comment distribution for extent of above described mass with persistent mass effect upon with displacement of the midbrain/ramin to the left. -Start Decadron 10mg IV Q8 hours--will adjust dose tomorrow. -Neuro checks q4 hours and prn. -Repeat non-contrast CT Head tomorrow morning to re-eval the mass effect with displaced midbrain/ramin. -Continue Keppra 500mg PO BID for seizure ppx. -Notify neuro team of any acute changes in pt's condition. May consider transfer to med-surg/tele floor if there is an acute change in pt's condition or if neuro checks cannot be done q4 hours. Discussed with Dr. Masterson Status: Acute
[2018-10-13] MEDS ORDERED: Dexamethasone 10 MG in Sodium Chloride 0.9% 50 ML IV SCH (14:00)
--- NOTE | 2018-10-13 16:43 | CP.PCM.PN ---
Subjective - Date & Time of Evaluation Date of Evaluation: 10/13/18 Time of Evaluation: 16:42 - Subjective Subjective: Patient seen in the room still significant scabbing over incision I have instructed nursing to rub gauze over the area a few times to night and soak it as well to prep the area for an easier removal of the rasta Objective - Vital Signs/Intake and Output Vital Signs (last 24 hours): Temp Pulse Resp BP Pulse Ox 97.9 F 82 18 113/66 98 10/13/18 07:43 10/13/18 16:00 10/13/18 16:00 10/13/18 16:00 10/13/18 07:43 - Medications Medications: Current Medications Acetaminophen (Tylenol 325mg Tab) 650 mg PO Q4 PRN PRN Reason: Headache Last Admin: 10/12/18 13:50 Dose: 650 mg Acetaminophen (Tylenol 325mg Tab) 650 mg PO Q4 PRN PRN Reason: Other Last Admin: 10/13/18 15:58 Dose: 650 mg Albuterol/Ipratropium (Duoneb 3 Mg/0.5 Mg (3 Ml) Ud) 3 ml IH RQ4 PRN PRN Reason: Shortness of Breath Artificial Tears (Artificial Tears) 2 drop OD Q6 [facility] Last Admin: 10/13/18 11:40 Dose: 1 applic Atorvastatin Calcium (Lipitor) 10 mg PO HS [facility] Last Admin: 10/12/18 21:13 Dose: 10 mg Dexamethasone (Decadron Inj) 10 mg IV Q8 [facility] Last Admin: 10/13/18 14:21 Dose: 10 mg Diphenhydramine HCl (Benadryl) 25 mg PO Q6 PRN PRN Reason: itchiness Docusate Sodium (Colace) 100 mg PO BID [facility] Last Admin: 10/13/18 08:13 Dose: 100 mg Hydrogen Peroxide (Hydrogen Peroxide 3%) 10 ml TP DAILY@0700 [facility] Last Admin: 10/13/18 06:19 Dose: 10 ml Insulin Human Lispro (Humalog) 0 units SC [facility]; Protocol Last Admin: 10/13/18 12:41 Dose: 1 unit Levetiracetam (Keppra) 500 mg PO BID [facility] Last Admin: 10/13/18 08:12 Dose: 500 mg Lisinopril (Zestril) 2.5 mg PO DAILY [facility] Last Admin: 10/13/18 08:12 Dose: 2.5 mg Metformin HCl (Glucophage) 1,000 mg PO 0900,1700 [facility] Last Admin: 10/13/18 16:39 Dose: 1,000 mg Multivitamins/Minerals (Therapeutic-M Tab) 1 tab PO DAILY [facility] Last Admin: 10/13/18 08:13 Dose: 1 tab Pantoprazole Sodium (Protonix Ec Tab) 40 mg PO 0630 [facility] Last Admin: 10/13/18 05:55 Dose: 40 mg Vitamin D (Vitamin D 400 Intl Units Tab) 400 intlu PO DAILY [facility] Last Admin: 10/13/18 08:12 Dose: 400 intlu - Labs Labs: 10/11/18 05:30 10/11/18 05:30
[2018-10-14] MEDS: Artificial Tears Opht Soln OD SCH ×4 (06:19→23:00)
[2018-10-14] MEDS: Pantoprazole 40 mg EC Tab PO SCH (06:20)
[2018-10-14] MEDS: Hydrogen Peroxide 3% Soln (480ml) TP SCH (06:43)
[2018-10-14] MEDS: Insulin Lispro (humaLOG) 100 Units/ml Inj SC SCH ×4 (06:54→21:17)
[2018-10-14] MEDS: Multivitamin With Minerals Tab PO SCH (09:27)
[2018-10-14] MEDS: Cholecalciferol 400 Intl Units Tab PO SCH (09:28)
--- NOTE | 2018-10-14 11:52 | CT ---
Date of service: 10/14/2018 PROCEDURE: CT HEAD WITHOUT CONTRAST. HISTORY: re-eval mass effect with displaced midbrain/ramin COMPARISON: None available. TECHNIQUE: Axial computed tomography images were obtained through the head/brain without intravenous contrast. Radiation dose: Total exam DLP = 0.0 mGy-cm. This CT exam was performed using one or more of the following dose reduction techniques: Automated exposure control, adjustment of the mA and/or kV according to patient size, and/or use of iterative reconstruction technique. FINDINGS: HEMORRHAGE: No intracranial hemorrhage. BRAIN: A large hyperdense masses appreciated at the central/right paracentral inferior intracranial space centered at the skull base and right middle and posterior cranial fossae as well as suprasellar cistern, right greater than left cerebellopontine angles as well as the right basilar cistern and pre medullary cistern. Erosive changes affect the right sphenoid, including the clivus and temporal bones once again with patient seen to be status post right frontotemporal craniotomy/partial craniectomy. Invasion into the sphenoid sinuses reiterated. Local encephalomalacia is again seen affecting the right temporal with mass effect at the right cerebral peduncle and brainstem reiterated. Minimal shift toward the left of the brainstem question. Compression of the right side of the ramin and medulla a significantly more prominent feature than leftward shift. No significant interval change appreciated. Overall size the mass is again seen measuring 5.7 x 5.5 cm (transverse by anteroposterior dimensions). Stable right frontotemporal scalp fluid collection and emphysema. MASTOID AIR CELLS: Unremarkable as visualized. No inflammatory changes. OTHER FINDINGS: None. IMPRESSION: Stable large right skull base mass not simply changed in size with significant mass effect persisting at the right cerebral peduncle and brainstem status post prior right frontotemporal craniotomy. Compression of the ramin and upper medulla and predominate at the right side, not significantly changed. Stable right frontotemporal scalp fluid collection and emphysema.
--- NOTE | 2018-10-14 13:23 | PCM.PSYTMC ---
Acute Rehab Team Conference - - Vital Signs: Vital Signs (Last 8 Hours): Vital Signs 10/14/18 10/14/18 10/14/18 07:54 08:03 09:28 Temperature 97.6 F 97.6 F Pulse Rate 94 H 94 H 94 H Respiratory 19 19 Rate Blood Pressure 115/66 115/66 115/72 O2 Sat by Pulse 99 Oximetry Pain: 0 - Precautions: Precautions: Fall Prevention, Seizure - Medications/Other Issues: Comment: -Unable to open right eye. Pupil is reactive but sluggish. -Madison on incision line. -Keppra for seizure prevention - Consults: Comment: -Dr. Smith - Physiatry. -Dr. Jimenez - Neurology - Skin: Incision Site: Right frontal region Dressing Status: Clean, Dry, Intact Incision: Madison Intact Incision Line Treatment: I/L w/ scab and rasta. Using NS to soften the scabs for staple removal. - Toileting: Toileting: Supervision - Bladder Management: Bladder Pattern: Normal Voiding Method: Toilet Bladder Management: Independent Other Intervention:: Continent of urine no accidents - Transfers: Transfers: Contact Guard - ADL's: ADL's: Minimal Assistance - Pain Management: Other Intervention:: -Tylenol 650 mg every 4 hours for pain 1-7. -Percocet 1 tab every 6 hours for pain 8-10. - Patient/Family Teaching: Other Intervention:: -Teach patient safety precautions, medication (seizure medication, diabetic medication, and blood pressure meds), wound care, hand- washing - Goals/Time Frame: Comment: To keep patient safe and infection-free until discharge date or next team conference - Provider: Registered Nurse:: Gabriella Sosa Physical Therapy - Bed Mobility Bed Mobility: Supervision - Transfers Wheelchair to Mat: Supervision Sit to Stand: Supervision, Verbal Cues - Ambulation Level of Assistance: Supervision, Verbal Cues Distance (ft.): 300 Assistive Devices: N/A - Stair Negotiation Stairs: Level of Assistance: Supervision, Verbal Cues Number of Stairs: 22 Handrails: Left - Standing Balance Static Stand: Independent Comment: unsupported - Pain Pain (assessed during therapy session): 0 Alleviating Techniques: Medication Comment: occasional headaches - Insight/Carryover Insight/Carryover: Good - Patient/Family Education Comment: safety, POC, d/c recommendations - Assessment/Plan Assessment: Pt participated in PT tx session focusing in BLE strengthening exercises, balance and endurance activities, and functional mobiltiy training. Pts daughter was scheduled for caregiver training; however, did not come. interior surface insulation worker made aware. Pt ambulates without AD and distant S; negotiates 2 flights of stairs with distant supervision. Pt will continue to benefit from skilled PT interventions to address deficits, reduce fall risk, and maximize functional independence - Goals Timeframe: 1 week Goals: sit < > supine (I). All functional transfers (I). Pt will ambulate 1000 ft (I). Pt will ascend/descend flight of stairs mod I - Provider Physical Therapist:: Eve Garvey License Number:: [id number] Occupational Therapy - Arousal/Attention/Orientation Level of Consciousness: Awake, Alert Patient Orientation: Person, Place, Time, Appropriate to Age, Appropriate to Situation - ADL/IADL Self Feeding: Set-up Help Grooming: Set-up Help Bathing-Upper Ext: Independent, Verbal Cues, Set-up Help Bathing-Lower Ext: Supervision, Verbal Cues, Set-up Help Dressing-Upper Ext: Independent, Set-up Help Dressing-Lower Ext: Supervision, Verbal Cues, Set-up Help Comment: DS for lower body self care - Sitting Balance Static Sitting: Independent without upper extremity support Dynamic Sitting: Reaches across midline, Reaches out of base of support, Reaches within base of support, Requires supervision - Transfers Wheelchair to Bed Transfers: Supervision, Verbal Cues, Set-up Help Toilet Transfers: Supervision, Verbal Cues, Set-up Help Tub Transfers: Supervision, Verbal Cues, Set-up Help - Wheelchair Management Level of Assistance: Not Applicable - Upper Extremity Status Right Upper Extremity Comment: AROM is WFLS, 4/5 Left Upper Extremity Comment: AROM is WFLS, 4/5 - Pain Pain (assessed during therapy session): 0 - Insight/Carryover Insight/Carryover: Good - Patient/Family Education Comment: -educated on rehba/OT goals, paln of care. -adl/transfer mobility traing using sfaety strategies, pacing. -review uses/applications of commode, shower chair with back - Assessment/Plan Assessment: Pt currently Supervision level for adls, transfers/functional mobility Pt does not need 3 in one commode at this time--thus removed from over toilet. Pt reminded if changes mind about needing commode to let therapist made aware. Pt needs verbal cues for pacing darin with turns/maneuvers. Goal: Intermittent S for adls, transfers/mobility and light homemaking tasks. - Goals Timeframe: 3 days Comment: *Distant S for self care, transfers/mobility and light kitchen tasks. *Caregiver to be I assisting/cueing pt for daily living atsks - Provider Occupational Therapist:: Haylie Colón License Number: [id number] Recreational Therapy - Participation Participation: Participates in Individual and/or Group Sessions - Attendance Attendance: 3-5 times per week - Activities Leisure Activities: Cards and Games - Socialization Level of Socialization: Initiates/interacts freely with care givers and peer - Assessment Assessment/Plan: Pt is agreeable to participate in 1:1 and group recreation therapy sessions offered on unit. Pt enjoyed participating in bingo task with peers and presented with visual attention related tasks such as coloring, word searches, etc. to complete during her free time. Pt receives supervision throughout all sessions 2' impaired balance although pt does well and compensates for visual deficits. Pt will continue to benefit from participating in recreation therapy sessions offered on unit. Problems Currently Limiting Participation: headache pain, R eye swollen, decrease leisure awareness level, decrease safety insight Goals and Time Frame: Pt will be encouraged to participate in 1:1 and group recreation therapy sessions 3-5x week to improve leisure awareness level, arousal level, command following level, and overall mood state by date of discharge. - Provider Therapist: Celi Gonzalez Nutrition - Current Diet Current Diet/Supplement/Feedings: Moderate consistent CHO - Appetite Percent Meal Consumed: 75-100% - Comments Comments: Pt seen today, diet changed to Consistent CHO diet. - Assessment/Goals/Time Frame Assessments/Goals/Time Frame: Pt at moderate nutritional risk. goals: 1) Pt to consume at least 75% meals without GI upset x 5-7 days. 2) Pt to have glucose controlled 80-180mg/dL x 5-7 days. Follow-up due on 10/14/2018 - Provider Provider: aJna Godinez Case Management - Psychosocial Assessment Support Systems: Asia Pitts ([place]) - [phone] Psychological Interventions/Needs: Patient is AAOx3 and able to verbalize needs. Discharge Concerns: Patient lives at home with her elderly mother whom she takes care of, as well as her daughter and granddaughter. Patient has a flight of stairs to navigate. Patient/Family Meeting: CM met with patient and rehab team. Intervention/Goal/Outcome: 1. Goal: Intermittent supervision 2. Plan: Home with [facility]NS 3. follow up with [facility] agencies to solidify which agency can provide pt services through her [employer] insurance 4. confirm brain picker upon d/c by pt's friend, Asia - Discharge Plan Discharge Plan: Home with services Home Services: [facility]? - Provider Provider: Colleen Nye License Number: [id number] Rehabilitation Plan - Treatment Plan Treatment Plan: Physical Therapy, Occupational Therapy, Dietary - Discharge Plan Estimated Date of Discharge: 10/15/18 Discharge to: Home
--- NOTE | 2018-10-14 14:05 | CP.PCM.PN ---
Subjective - Date & Time of Evaluation Date of Evaluation: 10/14/18 Time of Evaluation: 14:02 - Subjective Subjective: Patient seen in the room doing very well ambulating 300' rasta due out today I had the area prepped yesterday to remove any excess scabbing which was done nicely by nursing staff I removed all rasta with minimal discomfort. No need even for steristrips. Set for d/c home tomorrow Objective - Vital Signs/Intake and Output Vital Signs (last 24 hours): Temp Pulse Resp BP Pulse Ox 97.6 F 94 H 19 115/72 99 10/14/18 08:03 10/14/18 09:28 10/14/18 08:03 10/14/18 09:28 10/14/18 08:03 - Medications Medications: Current Medications Acetaminophen (Tylenol 325mg Tab) 650 mg PO Q4 PRN PRN Reason: Headache Last Admin: 10/12/18 13:50 Dose: 650 mg Acetaminophen (Tylenol 325mg Tab) 650 mg PO Q4 PRN PRN Reason: Other Last Admin: 10/13/18 23:52 Dose: 650 mg Albuterol/Ipratropium (Duoneb 3 Mg/0.5 Mg (3 Ml) Ud) 3 ml IH RQ4 PRN PRN Reason: Shortness of Breath Artificial Tears (Artificial Tears) 2 drop OD Q6 [facility] Last Admin: 10/14/18 11:56 Dose: 2 drop Atorvastatin Calcium (Lipitor) 10 mg PO HS [facility] Last Admin: 10/13/18 21:42 Dose: 10 mg Dexamethasone (Decadron Inj) 10 mg IV Q8 [facility] Last Admin: 10/14/18 13:18 Dose: 10 mg Diphenhydramine HCl (Benadryl) 25 mg PO Q6 PRN PRN Reason: itchiness Docusate Sodium (Colace) 100 mg PO BID [facility] Last Admin: 10/14/18 09:27 Dose: 100 mg Hydrogen Peroxide (Hydrogen Peroxide 3%) 10 ml TP DAILY@0700 [facility] Last Admin: 10/14/18 06:43 Dose: 10 ml Insulin Human Lispro (Humalog) 0 units SC [facility]; Protocol Last Admin: 10/14/18 11:56 Dose: 2 unit Levetiracetam (Keppra) 500 mg PO BID [facility] Last Admin: 10/14/18 09:27 Dose: 500 mg Lisinopril (Zestril) 2.5 mg PO DAILY [facility] Last Admin: 10/14/18 09:28 Dose: 2.5 mg Metformin HCl (Glucophage) 1,000 mg PO 0900,1700 [facility] Last Admin: 10/14/18 09:27 Dose: 1,000 mg Multivitamins/Minerals (Therapeutic-M Tab) 1 tab PO DAILY [facility] Last Admin: 10/14/18 09:27 Dose: 1 tab Pantoprazole Sodium (Protonix Ec Tab) 40 mg PO 0630 [facility] Last Admin: 10/14/18 06:20 Dose: 40 mg Vitamin D (Vitamin D 400 Intl Units Tab) 400 intlu PO DAILY [facility] Last Admin: 10/14/18 09:28 Dose: 400 intlu - Labs Labs: 10/11/18 05:30 10/11/18 05:30
--- NOTE | 2018-10-14 14:26 | CP.PCM.PN ---
Subjective - Date & Time of Evaluation Date of Evaluation: 10/14/18 Time of Evaluation: 14:24 - Subjective Subjective: Neuro Follow-Up Note: Mrs. Rivera was evaluated this afternoon in the acute rehab. She is in good spirits today and states she is going home tomorrow. She is relieved that the rasta to her surgical site were removed this afternoon. She reports a decrease in the swelling to her right eyelid and right cheek, as well as being able to open her right eye just slightly to see the floor. Today she denies h/a, dizziness, visual changes to the left eye, chest pain, palpitations, sob, cough, abd pain, n/v/d, paresthesias. Objective - Vital Signs/Intake and Output Vital Signs (last 24 hours): Temp Pulse Resp BP Pulse Ox 97.6 F 94 H 19 115/72 99 10/14/18 08:03 10/14/18 09:28 10/14/18 08:03 10/14/18 09:28 10/14/18 08:03 - Medications Medications: Current Medications Acetaminophen (Tylenol 325mg Tab) 650 mg PO Q4 PRN PRN Reason: Headache Last Admin: 10/12/18 13:50 Dose: 650 mg Acetaminophen (Tylenol 325mg Tab) 650 mg PO Q4 PRN PRN Reason: Other Last Admin: 10/13/18 23:52 Dose: 650 mg Albuterol/Ipratropium (Duoneb 3 Mg/0.5 Mg (3 Ml) Ud) 3 ml IH RQ4 PRN PRN Reason: Shortness of Breath Artificial Tears (Artificial Tears) 2 drop OD Q6 [facility] Last Admin: 10/14/18 11:56 Dose: 2 drop Atorvastatin Calcium (Lipitor) 10 mg PO HS [facility] Last Admin: 10/13/18 21:42 Dose: 10 mg Dexamethasone (Decadron Inj) 10 mg IV Q8 [facility] Last Admin: 10/14/18 13:18 Dose: 10 mg Diphenhydramine HCl (Benadryl) 25 mg PO Q6 PRN PRN Reason: itchiness Docusate Sodium (Colace) 100 mg PO BID [facility] Last Admin: 10/14/18 09:27 Dose: 100 mg Hydrogen Peroxide (Hydrogen Peroxide 3%) 10 ml TP DAILY@0700 [facility] Last Admin: 10/14/18 06:43 Dose: 10 ml Insulin Human Lispro (Humalog) 0 units SC ACHS [facility]; Protocol Last Admin: 10/14/18 11:56 Dose: 2 unit Levetiracetam (Keppra) 500 mg PO BID [facility] Last Admin: 10/14/18 09:27 Dose: 500 mg Lisinopril (Zestril) 2.5 mg PO DAILY [facility] Last Admin: 10/14/18 09:28 Dose: 2.5 mg Metformin HCl (Glucophage) 1,000 mg PO 0900,1700 [facility] Last Admin: 10/14/18 09:27 Dose: 1,000 mg Multivitamins/Minerals (Therapeutic-M Tab) 1 tab PO DAILY [facility] Last Admin: 10/14/18 09:27 Dose: 1 tab Pantoprazole Sodium (Protonix Ec Tab) 40 mg PO 0630 [facility] Last Admin: 10/14/18 06:20 Dose: 40 mg Vitamin D (Vitamin D 400 Intl Units Tab) 400 intlu PO DAILY [facility] Last Admin: 10/14/18 09:28 Dose: 400 intlu - Labs Labs: 10/11/18 05:30 10/11/18 05:30 - Constitutional Appears: Well, Non-toxic, No Acute Distress - Head Exam Head Exam: NORMOCEPHALIC Additional comments: Post-craniotomy surgical site noted to right frontal area; rasta removed, site healing well. - Eye Exam Eye Exam: absent: EOMI, Normal appearance Pupil Exam: absent: NORMAL ACCOMODATION, PERRL Additional comments: + right side ptosis noted. + swelling noted to right periorbital area though improved compared to yesterday. With examiner holding the right eye open: + EMOI intact, visual marrero intact, no nystagmus, pupil size 5mm and is reactive but still slightly sluggish. No deficits to left eye movements or visual marrero. - ENT Exam ENT Exam: Mucous Membranes Moist - Neck Exam Neck Exam: Full ROM, Normal Inspection - Respiratory Exam Respiratory Exam: NORMAL BREATHING PATTERN - Extremities Exam Extremities Exam: Full ROM. absent: Calf Tenderness, Pedal Edema - Neurological Exam Neurological Exam: Alert, Awake, Oriented x3, Reflexes Normal. absent: CN II- XII Intact Neuro motor strength exam: Left Upper Extremity: 5, Right Upper Extremity: 5, Left Lower Extremity: 5, Right Lower Extremity: 5 Additional comments: AAOx3 Follows commands Speech clear, fluid No motor and sensory deficits. + right sided ptosis---see eyes exam section for more details. Sensation intact - Psychiatric Exam Psychiatric exam: Normal Affect, Normal Mood - Skin Skin Exam: Normal Color Additional comments: Post-craniotomy surgical site noted to right frontal area, rasta removed; site healing well. Assessment and Plan (1) Ptosis of right eyelid Assessment & Plan: Imaging reviewed: -CT Head (10/14/18): Stable large right skull base mass not simply changed in size with significant mass effect persisting at the right cerebral peduncle and brainstem status post prior right frontotemporal craniotomy. Compression of the ramin and upper medulla and predominate at the right side, not significantly changed. Stable right frontotemporal scalp fluid collection and emphysema. -CT Head (10/12/18): Interval right frontotemporal craniotomy with associated postsurgical changes. No significant change in appearance comment distribution for extent of above described mass with persistent mass effect upon with displa cement of the midbrain/ramin to the left. -Continue Decadron 10mg IV Q8 hours for now--will discuss adjustment of medication with Dr. Masterson. -Neuro checks -Continue Keppra 500mg PO BID for seizure ppx. -Notify neuro team of any acute changes in pt's condition. Will discuss with Dr. Masterson the d/c plan (set for tomorrow as per my discussion Dr. Smith and Ludy Nurse [employer]) and further medications, follow up, etc. I will add an addendum to this progress note once I have spoke with Dr. Masterson. Status: Acute
[2018-10-14 20:07] VITALS: PULSE 82
[2018-10-15] MEDS: Pantoprazole 40 mg EC Tab PO SCH (05:47)
[2018-10-15] MEDS: Artificial Tears Opht Soln OD SCH ×2 (05:47→12:09)
[2018-10-15] MEDS: Hydrogen Peroxide 3% Soln (480ml) TP SCH (06:35)
[2018-10-15] MEDS: Insulin Lispro (humaLOG) 100 Units/ml Inj SC SCH ×2 (06:35→12:10)
[2018-10-15 08:17] VITALS: BP 114/61; RESP 22; TEMP 97.5; O2SAT 100
[2018-10-15] MEDS: Multivitamin With Minerals Tab PO SCH (08:57)
[2018-10-15] MEDS: Cholecalciferol 400 Intl Units Tab PO SCH (08:58)
--- NOTE | 2018-10-15 10:15 | CP.PCM.PN ---
Objective - Vital Signs/Intake and Output Vital Signs (last 24 hours): Temp Pulse Resp BP Pulse Ox 97.5 F L 82 22 114/61 100 10/15/18 09:02 10/15/18 08:58 10/15/18 08:16 10/15/18 08:58 10/15/18 08:16 - Medications Medications: Current Medications Acetaminophen (Tylenol 325mg Tab) 650 mg PO Q4 PRN PRN Reason: Headache Last Admin: 10/15/18 09:02 Dose: 650 mg Acetaminophen (Tylenol 325mg Tab) 650 mg PO Q4 PRN PRN Reason: Other Last Admin: 10/15/18 06:29 Dose: 650 mg Albuterol/Ipratropium (Duoneb 3 Mg/0.5 Mg (3 Ml) Ud) 3 ml IH RQ4 PRN PRN Reason: Shortness of Breath Artificial Tears (Artificial Tears) 2 drop OD Q6 [facility] Last Admin: 10/15/18 05:47 Dose: 2 drop Atorvastatin Calcium (Lipitor) 10 mg PO HS [facility] Last Admin: 10/14/18 21:15 Dose: 10 mg Diphenhydramine HCl (Benadryl) 25 mg PO Q6 PRN PRN Reason: itchiness Docusate Sodium (Colace) 100 mg PO BID [facility] Last Admin: 10/15/18 08:56 Dose: 100 mg Hydrogen Peroxide (Hydrogen Peroxide 3%) 10 ml TP DAILY@0700 [facility] Last Admin: 10/15/18 06:35 Dose: 10 ml Insulin Human Lispro (Humalog) 0 units SC [facility]; Protocol Last Admin: 10/15/18 06:35 Dose: Not Given Levetiracetam (Keppra) 500 mg PO BID [facility] Last Admin: 10/15/18 08:57 Dose: 500 mg Lisinopril (Zestril) 2.5 mg PO DAILY [facility] Last Admin: 10/15/18 08:58 Dose: 2.5 mg Metformin HCl (Glucophage) 1,000 mg PO 0900,1700 [facility] Last Admin: 10/15/18 08:56 Dose: 1,000 mg Multivitamins/Minerals (Therapeutic-M Tab) 1 tab PO DAILY [facility] Last Admin: 10/15/18 08:57 Dose: 1 tab Pantoprazole Sodium (Protonix Ec Tab) 40 mg PO 0630 [facility] Last Admin: 10/15/18 05:47 Dose: 40 mg Vitamin D (Vitamin D 400 Intl Units Tab) 400 intlu PO DAILY [facility] Last Admin: 10/15/18 08:58 Dose: 400 intlu - Labs Labs: 10/11/18 05:30 10/11/18 05:30 Assessment and Plan - Assessment and Plan (Free Text) Assessment: 57 y/o lady with Meniningioma dx in [facility] on 08/01/2018. She was referred to [facility] and had debulking craniotomy on 09/29/2018. She was brought here and admitted to Acute Rehab for continuation of PT. 1. Meningioma s/p Craniotomy with debulking continue PT/OT physiatry consult with Dr Luis Sidhu 500mg PO BID neuro consult with Dr Jimenez rpt Ct opf head done 10/12:Interval right frontotemporal craniotomy with associat ed postsurgical changes. No significant change in appearance comment distribution for extent of above described mass with persistent mass effect upon with displacement of the midbrain/ramin to the left. 2. DM2 accuchek ACHS with low Lispro coverage Metformin 1000mg PO q 12hrs 3. HTN BP stable continue Lisinopril 2.5mg PO daily 4. DVT prophylaxis venodyne boots while in bed
--- NOTE | 2018-10-15 11:23 | CP.PCM.DIS ---
Provider - Provider Date of Admission: 10/03/18 17:32 Attending physician: Hossein Jamison MD Primary care physician: Dr. Jyoti Palmer Consults: 10/03/18 18:29 Physiatry Consult Routine Comment: Consulting Provider: Greg Smith Consulting Physician: Greg Smith Reason for Consult: Cerebral Meningioma s/p Craniotomy 10/03/18 18:39 Case Management Referral Routine Comment: Physician Instructions: Reason For Exam: Cerebral Meningioma s/p Craniotomy Reason for Referral: Discharge Planning 10/04/18 07:16 Pharmacist Consult As Ordered Comment: Physician Instructions: Reason For Exam: Multiple medication 10/10/18 12:38 Neurology Consult Routine Comment: Consulting Provider: Tia Jimenez Consulting Physician: Tia Jimenez Reason for Consult: persistent ptosis of right eyelid Time Spent in preparation of Discharge (in minutes): 20 Hospital Course - Lab Results Lab Results: Most Recent Lab Values WBC 11.0 K/uL (4.8-10.8) H 10/11/18 05:30 RBC 4.15 Mil/uL (3.80-5.20) 10/11/18 05:30 Hgb 10.8 g/dL (12.0-16.0) L 10/11/18 05:30 Hct 33.5 % (34.0-47.0) L 10/11/18 05:30 MCV 80.7 fl (81.0-99.0) L 10/11/18 05:30 MCH 26.0 pg (27.0-31.0) L 10/11/18 05:30 MCHC 32.2 g/dL (33.0-37.0) L 10/11/18 05:30 RDW 16.2 % (11.5-14.5) H 10/11/18 05:30 Plt Count 494 K/uL (130-400) H 10/11/18 05:30 Sodium 136 mmol/l (132-148) 10/11/18 05:30 Potassium 4.0 MMOL/L (3.6-5.0) 10/11/18 05:30 Chloride 94 mmol/L (98-107) L 10/11/18 05:30 Carbon Dioxide 29 mmol/L (22-30) 10/11/18 05:30 Anion Gap 17 (10-20) 10/11/18 05:30 BUN 14 mg/dl (7-17) 10/11/18 05:30 Creatinine 0.5 mg/dl (0.7-1.2) L 10/11/18 05:30 Est GFR ( Amer) > 60 10/11/18 05:30 Est GFR (Non-Af Amer) > 60 10/11/18 05:30 POC Glucose (mg/dL) 126 mg/dL (65-110) H 10/15/18 05:46 Random Glucose 179 mg/dL (65-105) H 10/11/18 05:30 Hemoglobin A1c 6.7 % (4.2-6.5) H 10/11/18 05:30 Calcium 9.4 mg/dL (8.4-10.2) 10/11/18 05:30 - Hospital Course Hospital Course: 57 y/o lady with Meniningioma dx in [facility] on 08/01/2018 underwent craniectomy at [facility] 09/29/17 with debulking. She was transferred to acute rehab post procedure for rehab . Neurology was consulted durimng rehab stay and post procedure CT heda and MRI were ordered for monitoring edema and mass effect. Patient was started on Keppra Po for seizure prevention and decadron for mass effect. She participated well with pt and improved Last Ct 10/14/18 was read as : Stable large right skull base mass not simply changed in size with significant mass effect persisting at the right cerebral peduncle and brainstem status post prior right frontotemporal craniotomy. Compression of the ramin and upper medulla and predominate at the right side, not significantly changed. Stable right frontotemporal scalp fluid collection and emphysema. As per neurology there is no more need for Decadron treatment Patient will be discharged home today. She has follow up appointments with Her PMD and her neurosurgeon 1. Meningioma s/p Craniotomy with debulking continue Keppra 500mg PO BID for seizue prophylaxis No need for decadron upon discharge Patient to follow upw ith her neurosurgeon and PMD as scheduled after discharge stapples have been removed from right craniotomoy incision and surgical healing well 2. DM2 accuchek ACHS with low Lispro coverage Metformin 1000mg PO q 12hrs 3. HTN BP stable continue Lisinopril 2.5mg PO daily Discharge Exam - Head Exam Head Exam: NORMOCEPHALIC Additional comments: right frontototemporal craniotomy scar Keeps right eye closed - Eye Exam Eye Exam: PERRL Additional comments: keeps right eye closed PENG - ENT Exam ENT Exam: Mucous Membranes Moist, Normal Exam - Neck Exam Neck exam: Full Rom, Normal Inspection - Respiratory Exam Respiratory Exam: Clear to PA & Lateral, NORMAL BREATHING PATTERN. absent: Rales, Rhonchi, Wheezes - Cardiovascular Exam Cardiovascular Exam: REGULAR RHYTHM, RRR, +S1, +S2. absent: JVD - GI/Abdominal Exam GI & Abdominal Exam: Normal Bowel Sounds, Soft. absent: Distended, Guarding, Rebound, Tenderness - Rectal Exam Rectal Exam: Deferred - Extremities Exam Extremities exam: normal capillary refill, normal inspection, pedal pulses present - Back Exam Back exam: NORMAL INSPECTION - Neurological Exam Neurological exam: Alert, CN II-XII Intact - Psychiatric Exam Psychiatric exam: Normal Affect - Skin Skin Exam: Dry, Normal Color, Warm Discharge Plan - Discharge Medications Prescriptions: Atorvastatin [Lipitor] 10 mg PO HS #30 tab Cholecalciferol 400 Intl Units [Vitamin D 400 Intl Units Tab] 400 iu PO DAILY #30 tab levETIRAcetam [Keppra] 500 mg PO BID #60 tab Lisinopril [Zestril] 2.5 mg PO DAILY #30 tab MetFORMIN [glucoPHAGE] 1,000 mg PO 0900,1700 #60 tab Multivitamin [Multi-Vitamin Daily] 1 each PO DAILY #30 tablet - Follow Up Plan Condition: GOOD Disposition: HOME/ ROUTINE Patient education suggested?: Yes Referrals: Jyoti Palmer MD [Family Provider] -
== END 2018-10-15 16:02 | disposition home health service (06) | DRG 466 ==
PROC: F08Z1FZ Dressing Techniques Treatment using Assistive, Adaptive, Supportive or Protective Equipment (ICD-10-PCS; principal; 2018-10-03)
PROC: F07L6GZ Therapeutic Exercise Treatment of Musculoskeletal System - Lower Back / Lower Extremity using Aerobic Endurance and Conditioning Equipment (ICD-10-PCS; 2018-10-03)
PROC: F07Z9ZZ Gait Training/Functional Ambulation Treatment (ICD-10-PCS; 2018-10-03)
DX: Z48.3 Aftercare following surgery for neoplasm (principal); D32.0 Benign neoplasm of cerebral meninges; H49.01 Third [oculomotor] nerve palsy, right eye; H49.11 Fourth [trochlear] nerve palsy, right eye; H49.21 Sixth [abducent] nerve palsy, right eye; H53.461 Homonymous bilateral field defects, right side; H02.401 Unspecified ptosis of right eyelid; E11.9 Type 2 diabetes mellitus without complications; I10 Essential (primary) hypertension; E78.5 Hyperlipidemia, unspecified; E78.00 Pure hypercholesterolemia, unspecified; K29.70 Gastritis, unspecified, without bleeding; R27.0 Ataxia, unspecified